=== PATIENT | male | born 1955 | race American Indian/Alaskan Native ===

== ENCOUNTER 2017-04-23 07:42 | Emergency (ER) | payer MEDICAID, SELFPAY ==
--- NOTE | 2017-04-23 07:48 | EDM.PDOC ---
ED HPI GENERAL MEDICAL PROBLEM - General Chief Complaint: General Stated Complaint: [id number] FLU Time Seen by Provider: 04/23/17 07:46 Source of Information: Reports: Patient, Old Records, RN, RN Notes Reviewed History Limitations: Reports: No Limitations - History of Present Illness INITIAL COMMENTS - FREE TEXT/NARRATIVE: Arrives from home by POV with c/o 1 weeks duration of cough, fever/chills, and generalized body aches with "flu-like" symptoms. Pt denies chest pain, abdominal pain, N/V/D/C, or sore throat. Duration: Constant Location: Reports: Generalized Quality: Reports: Ache Severity: Moderate Improves with: Reports: None Worsens with: Reports: None Context: Reports: Sick Contact Associated Symptoms: Reports: No Other Symptoms Treatments PATIENT CARE PROVIDER: Reports: Acetaminophen Headache Pain Score (Numeric/FACES): 9 - Related Data Allergies Allergy/AdvReac Type Severity Reaction Status Date / Time No Known Allergies Allergy Verified 04/23/17 07:46 Home Meds: Home Meds Gabapentin [Gabapentin] 600 mg PO TID 10/14/14 [History] Insulin Glarg,Human.Rec.Analog [Lantus] 40 units SUBCUT DAILY 10/14/14 [History] Simvastatin [Simvastatin] 10 mg PO DAILY 10/14/14 [History] Aspirin [Halfprin] 81 mg PO DAILY 10/22/14 [History] Insulin Aspart [NovoLOG] 10 units SUBCUT TID 10/22/14 [History] Lisinopril [Lisinopril] 40 mg PO DAILY 10/22/14 [History] Tamsulosin [Flomax] 0.4 mg PO DAILY 04/01/15 [History] traMADol HCl [Tramadol HCl] 100 mg PO Q6H PRN 07/22/16 [History] DULoxetine HCl [Cymbalta] 60 mg PO DAILY 04/23/17 [History] Hydrochlorothiazide 25 mg PO DAILY 04/23/17 [History] Meloxicam [Meloxicam] 15 mg PO DAILY 04/23/17 [History] Past Medical History HEENT History: Reports: None Cardiovascular History: Reports: High Cholesterol, Hypertension Respiratory History: Reports: None Gastrointestinal History: Reports: None Genitourinary History: Reports: BPH, Retention, Urinary Other Genitourinary History: going to often Musculoskeletal History: Reports: Back Pain, Chronic Other Musculoskeletal History: injections to both hips 3 weeks ago Neurological History: Reports: None Psychiatric History: Reports: None Endocrine/Metabolic History: Reports: Diabetes, Type II Hematologic History: Reports: None Immunologic History: Reports: None Oncologic (Cancer) History: Reports: None Dermatologic History: Reports: None - Infectious Disease History Infectious Disease History: Reports: Chicken Pox - Past Surgical History Head Surgeries/Procedures: Reports: None HEENT Surgical History: Reports: Tonsillectomy Other Musculoskeletal Surgeries/Procedures:: ankle surgury Social & Family History - Family History Family Medical History: Noncontributory - Tobacco Use Smoking Status *Q: Current Some Day Smoker Years of Tobacco use: 20 Packs/Tins Daily: 0.5 Used Tobacco, but Quit: No Month Tobacco Last Used: october Hand Smoke Exposure: No - Caffeine Use Caffeine Use: Reports: Coffee - Alcohol Use Days Per Week of Alcohol Use: 0 - Recreational Drug Use Recreational Drug Use: No - Living Situation & Occupation Living situation: Reports: with Family Occupation: Employed ED ROS GENERAL - Review of Systems Review Of Systems: ROS reveals no pertinent complaints other than HPI. ED EXAM, GENERAL - Physical Exam Exam: See Below Exam Limited By: No Limitations General Appearance: Alert, WD/WN, No Apparent Distress Eye Exam: Bilateral Eye: Normal Inspection Ears: Normal External Exam, Normal Canal, Hearing Grossly Normal, Normal TMs Nose: Normal Inspection, Normal Mucosa, No Blood Throat/Mouth: Normal Inspection, Normal Lips, Normal Teeth, Normal Gums, Normal Oropharynx, Normal Voice, No Airway Compromise Head: Atraumatic, Normocephalic Neck: Normal Inspection, Supple, Non-Tender, Full Range of Motion. No: Lymphadenopathy (L), Lymphadenopathy (R) Respiratory/Chest: No Respiratory Distress, No Accessory Muscle Use, Decreased Breath Sounds, Other (course breath sounds, dry cough) Cardiovascular: Normal Peripheral Pulses, Regular Rate, Rhythm, No Edema GI/Abdominal: Normal Bowel Sounds, Soft, Non-Tender, No Organomegaly, No Distention, No Abnormal Bruit (Male) Exam: Deferred Rectal (Males) Exam: Deferred Back Exam: Normal Inspection. No: CVA Tenderness (L), CVA Tenderness (R) Extremities: Normal Inspection Neurological: Alert, Oriented, CN II-XII Intact, Normal Cognition, Normal Gait, No Motor/Sensory Deficits Psychiatric: Normal Affect, Normal Mood Skin Exam: Warm, Dry, Intact, Normal Color, No Rash Course - Vital Signs Last Recorded V/S: Last Vital Signs Temp 36.9 C 04/23/17 07:54 Pulse 108 H 04/23/17 07:54 Resp 16 04/23/17 07:54 BP 160/86 H 04/23/17 07:54 Pulse Ox 96 04/23/17 07:54 - Orders/Labs/Meds Orders: Active Orders 24 hr Category Date Time Status Chest 2V [CR] Stat Exams 04/23/17 08:03 Taken CBC WITH AUTO DIFF [HEME] Stat Lab 04/23/17 08:12 Results MANUAL DIFFERENTIAL QA/NC [HEME] Stat Lab 04/23/17 08:12 Results cefTRIAXone 1 GM,Lidocaine 1% 2.1 ML Med 04/23/17 08:35 Ordered cefTRIAXone [Rocephin] 1 gm Lidocaine 1% [Xylocaine-MPF 1%] 2.1 ml IM ONETIME Labs: Laboratory Tests 04/23/17 Range/Units 08:12 WBC 9.4 (5.0-10.0) 10^3/uL RBC 4.77 (4.6-6.2) 10^6/uL Hgb 13.7 L (14.0-18.0) g/dL Hct 38.9 L (40.0-54.0) % MCV 81.6 (80-100) fL MCH 28.7 (27.0-34.0) pg MCHC 35.2 H (33.0-35.0) g/dL Plt Count 217 (150-450) 10^3/uL Neut % (Auto) 81.2 H (42.2-75.2) % Lymph % (Auto) 9.3 L (20.5-50.1) % Story % (Auto) 9.3 H (2-8) % Eos % (Auto) 0.1 L (1.0-3.0) % Baso % (Auto) 0.1 (0.0-1.0) % Add Manual Diff Yes Meds: Rocephin 1g IM. - Radiology Interpretation Free Text/Narrative:: CXR: stable Rt pulmonary granuloma compared to prior studies, possible left lingular infiltrate, see Rad. report. Departure - Departure Time of Disposition: 08:33 Disposition: Home, Self-Care 01 Condition: Good Clinical Impression: Pneumonia Qualifiers: Pneumonia type: due to unspecified organism Laterality: left Lung location: unspecified part of lung Qualified Code(s): J18.9 - Pneumonia, unspecified organism - Discharge Information Instructions: Community-Acquired Pneumonia, Adult, [id number] Forms: ED Department Discharge Additional Instructions: Rx: Zithromax 500mg Rx: Prednisone 20mg Follow up in clinic in 3 to 5 days for recheck. - My Orders Last 24 Hours: My Active Orders 04/23/17 08:03 Chest 2V [CR] Stat 04/23/17 08:12 CBC WITH AUTO DIFF [HEME] Stat MANUAL DIFFERENTIAL QA/NC [HEME] Stat 04/23/17 08:35 cefTRIAXone 1 GM,Lidocaine 1% 2.1 ML cefTRIAXone [Rocephin] 1 gm Lidocaine 1% [ Xylocaine-MPF 1%] 2.1 ml IM ONETIME - Assessment/Plan Last 24 Hours: My Active Orders 04/23/17 08:03 Chest 2V [CR] Stat 04/23/17 08:12 CBC WITH AUTO DIFF [HEME] Stat MANUAL DIFFERENTIAL QA/NC [HEME] Stat 04/23/17 08:35 cefTRIAXone 1 GM,Lidocaine 1% 2.1 ML cefTRIAXone [Rocephin] 1 gm Lidocaine 1% [ Xylocaine-MPF 1%] 2.1 ml IM ONETIME
[2017-04-23 07:55] VITALS: BP 160/86
[2017-04-23] MEDS ORDERED: cefTRIAXone 1 GM, Lidocaine 1% 2.1 ML IM ONE ×2 (08:35)
== END 2017-04-23 09:10 | disposition home or self-care (01) ==
LOC: DL.ED 07:42
DX: J18.9 Pneumonia, unspecified organism (principal); E78.4 Other hyperlipidemia; I10 Essential (primary) hypertension; E11.9 Type 2 diabetes mellitus without complications; F17.210 Nicotine dependence, cigarettes, uncomplicated; Z79.899 Other long term (current) drug therapy; Z79.82 Long term (current) use of aspirin; Z79.4 Long term (current) use of insulin
CPT/HCPCS: 36415; 71020; 85025; 96372; 99283; J0696

== ENCOUNTER 2017-05-19 09:35 | Emergency (ER) | payer MEDICAID | END 2017-05-19 10:00 | LOC: DL.ED 09:35 | DX: Z53.21 Procedure and treatment not carried out due to patient leaving prior to being seen by health care provider (principal) ==

== ENCOUNTER 2017-08-09 11:27 | Emergency (ER) | payer MEDICAID ==
[2017-08-09 12:03] VITALS: BP 180/87
--- NOTE | 2017-08-09 12:42 | EDM.PDOC ---
ED HPI GENERAL MEDICAL PROBLEM - General Chief Complaint: Lower Extremity Injury/Pain Stated Complaint: [id number] FELL AT HOME Time Seen by Provider: 08/09/17 12:20 Source of Information: Reports: Patient History Limitations: Reports: No Limitations - History of Present Illness INITIAL COMMENTS - FREE TEXT/NARRATIVE: This 62 yo male patient reports to the ED with right hip and pelvic pain. The patient reports he broke a pipe in his house last night. As he was attempting to get the water out of his basement, the patient fell in the water and hit his hip. The patient reports he has had increased pain in his hip since the fall. The patient reports he could not get a ride into the ED last night. The patient reports he does have chronic bilateral hip pain and is scheduled to be seen by ortho next week. The patient reports he was seen by Navjot Vasquez last week, but she did not refill his Tramadol or Gabapentin. Onset Date: 08/08/17 Duration: Constant Location: Reports: Lower Extremity, Right Quality: Reports: Ache, Dull Severity: Moderate Improves with: Reports: Rest Worsens with: Reports: Movement Context: Reports: Other (fall) Associated Symptoms: Reports: No Other Symptoms Left Hip Pain Score (Numeric/FACES): 10 - Related Data Allergies Allergy/AdvReac Type Severity Reaction Status Date / Time No Known Allergies Allergy Verified 04/23/17 07:46 Home Meds: Home Meds Gabapentin [Gabapentin] 600 mg PO TID 10/14/14 [History] Insulin Glarg,Human.Rec.Analog [Lantus] 40 units SUBCUT DAILY 10/14/14 [History] Simvastatin [Simvastatin] 10 mg PO DAILY 10/14/14 [History] Aspirin [Halfprin] 81 mg PO DAILY 10/22/14 [History] Insulin Aspart [NovoLOG] 10 units SUBCUT TID 10/22/14 [History] Lisinopril [Lisinopril] 40 mg PO DAILY 10/22/14 [History] Tamsulosin [Flomax] 0.4 mg PO DAILY 04/01/15 [History] traMADol HCl [Tramadol HCl] 100 mg PO Q6H PRN 07/22/16 [History] DULoxetine HCl [Cymbalta] 60 mg PO DAILY 04/23/17 [History] Hydrochlorothiazide 25 mg PO DAILY 04/23/17 [History] Meloxicam [Meloxicam] 15 mg PO DAILY 04/23/17 [History] Past Medical History HEENT History: Reports: None Cardiovascular History: Reports: High Cholesterol, Hypertension Respiratory History: Reports: None Gastrointestinal History: Reports: None Genitourinary History: Reports: BPH, Retention, Urinary Other Genitourinary History: going to often Musculoskeletal History: Reports: Back Pain, Chronic, Osteoarthritis Other Musculoskeletal History: injections to both hips 3 weeks ago Neurological History: Reports: None Psychiatric History: Reports: None Endocrine/Metabolic History: Reports: Diabetes, Type II Hematologic History: Reports: None Immunologic History: Reports: None Oncologic (Cancer) History: Reports: None Dermatologic History: Reports: None - Infectious Disease History Infectious Disease History: Reports: Chicken Pox - Past Surgical History Head Surgeries/Procedures: Reports: None HEENT Surgical History: Reports: Tonsillectomy Other Musculoskeletal Surgeries/Procedures:: ankle surgury Social & Family History - Family History Family Medical History: Noncontributory - Tobacco Use Smoking Status *Q: Current Some Day Smoker Years of Tobacco use: 20 Packs/Tins Daily: 0.5 Used Tobacco, but Quit: No Month Tobacco Last Used: october Second Hand Smoke Exposure: No - Caffeine Use Caffeine Use: Reports: Coffee - Alcohol Use Days Per Week of Alcohol Use: 0 - Recreational Drug Use Recreational Drug Use: No - Living Situation & Occupation Living situation: Reports: with Family Occupation: Employed Review of Systems - Review of Systems Review Of Systems: ROS reveals no pertinent complaints other than HPI. ED EXAM, GENERAL - Physical Exam Exam: See Below Exam Limited By: No Limitations General Appearance: Alert, WD/WN, Moderate Distress Eye Exam: Bilateral Eye: EOMI, Normal Inspection, PERRL Ears: Normal External Exam, Normal Canal, Hearing Grossly Normal, Normal TMs Nose: Normal Inspection, Normal Mucosa, No Blood Throat/Mouth: Normal Inspection, Normal Lips, Normal Teeth, Normal Gums, Normal Oropharynx, Normal Voice, No Airway Compromise Head: Atraumatic, Normocephalic Neck: Normal Inspection, Supple, Non-Tender, Full Range of Motion Respiratory/Chest: No Respiratory Distress, Lungs Clear, Normal Breath Sounds, No Accessory Muscle Use, Chest Non-Tender Cardiovascular: Normal Peripheral Pulses, Regular Rate, Rhythm, No Edema, No Gallop, No JVD, No Murmur, No Rub GI/Abdominal: Normal Bowel Sounds, Soft, Non-Tender, No Organomegaly, No Distention, No Abnormal Bruit, No Mass (Male) Exam: Deferred Rectal (Males) Exam: Deferred Back Exam: Normal Inspection, Full Range of Motion, NT Extremities: Normal Inspection, No Pedal Edema, Normal Capillary Refill, Leg Pain (right hip and pelvic pain) Neurological: Alert, Oriented, CN II-XII Intact, Normal Cognition, Normal Reflexes Psychiatric: Normal Affect, Normal Mood Skin Exam: Warm, Dry, Intact, Normal Color, No Rash Lymphatic: No Adenopathy Course - Vital Signs Last Recorded V/S: Last Vital Signs Temp 36.6 C 08/09/17 11:43 Pulse 75 08/09/17 11:43 Resp 16 08/09/17 11:43 BP 180/87 H 08/09/17 11:43 Pulse Ox 100 08/09/17 11:43 Departure - Departure Time of Disposition: 13:22 Disposition: Home, Self-Care 01 Condition: Fair Clinical Impression: Right hip pain - Discharge Information Instructions: Hip Pain Forms: ED Department Discharge Care Plan Goals: The patient was advised of the examination and x-ray results during the visit. The patient was given a script for [place] (5/325) #20 to take 1 by mouth every 6 hours as needed for pain. The patient was advised that only limited supplies of pain medications may be given through the ED. 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 If the patient has any additional symptoms or concerns, the patient should follow-up with his primary care facility or return to the emergency department.
== END 2017-08-09 13:25 | disposition home or self-care (01) ==
LOC: DL.ED 11:27
DX: M25.551 Pain in right hip (principal); E78.00 Pure hypercholesterolemia, unspecified; I10 Essential (primary) hypertension; E11.9 Type 2 diabetes mellitus without complications; F17.210 Nicotine dependence, cigarettes, uncomplicated; Z79.4 Long term (current) use of insulin; Z79.82 Long term (current) use of aspirin; Z79.899 Other long term (current) drug therapy
CPT/HCPCS: 99283

== ENCOUNTER 2017-09-22 14:56 | Emergency (ER) | payer SELFPAY ==
[2017-09-22] MEDS ORDERED: Ketorolac 30 MG/ML SDV IM ONE (17:00)
[2017-09-22 17:05] VITALS: BP 163/83
--- NOTE | 2017-09-22 17:12 | EDM.PDOC ---
Scribed by Judy Maldonado 09/22/17 1712 for Alex Lee MD ED HPI GENERAL MEDICAL PROBLEM - General Chief Complaint: General Stated Complaint: HIGH BP [id number] Time Seen by Provider: 09/22/17 16:55 Source of Information: Reports: Patient, RN, RN Notes Reviewed History Limitations: Reports: No Limitations - History of Present Illness INITIAL COMMENTS - FREE TEXT/NARRATIVE: Patient complaining of joint pains in bilateral knees, hands, wrists, elbows, shoulders and back. History of osteoarthritis and spurs on spine. Denies injury. Joints ache and feel hot to him. Location: Reports: Back, Upper Extremity, Left, Upper Extremity, Right, Lower Extremity, Left, Lower Extremity, Right, Other (shoulders) Quality: Reports: Ache Severity: Severe Improves with: Reports: None Worsens with: Reports: None Associated Symptoms: Reports: No Other Symptoms Generalized Pain Score (Numeric/FACES): 9 - Related Data Allergies Allergy/AdvReac Type Severity Reaction Status Date / Time No Known Allergies Allergy Verified 04/23/17 07:46 Home Meds: Home Meds Gabapentin [Gabapentin] 600 mg PO TID 10/14/14 [History] Insulin Glarg,Human.Rec.Analog [Lantus] 40 units SUBCUT DAILY 10/14/14 [History] Simvastatin [Simvastatin] 10 mg PO DAILY 10/14/14 [History] Aspirin [Halfprin] 81 mg PO DAILY 10/22/14 [History] Insulin Aspart [NovoLOG] 10 units SUBCUT TID 10/22/14 [History] Lisinopril [Lisinopril] 40 mg PO DAILY 10/22/14 [History] Tamsulosin [Flomax] 0.4 mg PO DAILY 04/01/15 [History] DULoxetine HCl [Cymbalta] 60 mg PO DAILY 04/23/17 [History] Hydrochlorothiazide 25 mg PO DAILY 04/23/17 [History] Meloxicam [Meloxicam] 15 mg PO DAILY 04/23/17 [History] Past Medical History HEENT History: Reports: None Cardiovascular History: Reports: High Cholesterol, Hypertension Respiratory History: Reports: None Gastrointestinal History: Reports: None Genitourinary History: Reports: BPH, Retention, Urinary Other Genitourinary History: going to often Musculoskeletal History: Reports: Back Pain, Chronic, Osteoarthritis Other Musculoskeletal History: injections to both hips 3 weeks ago Neurological History: Reports: None Psychiatric History: Reports: None Endocrine/Metabolic History: Reports: Diabetes, Type II Hematologic History: Reports: None Immunologic History: Reports: None Oncologic (Cancer) History: Reports: None Dermatologic History: Reports: None - Infectious Disease History Infectious Disease History: Reports: Chicken Pox - Past Surgical History Head Surgeries/Procedures: Reports: None HEENT Surgical History: Reports: Tonsillectomy Other Musculoskeletal Surgeries/Procedures:: ankle surgury Social & Family History - Family History Family Medical History: Noncontributory - Tobacco Use Smoking Status *Q: Current Every Day Smoker Years of Tobacco use: 5 Packs/Tins Daily: 0.1 Used Tobacco, but Quit: No Month Tobacco Last Used: october Second Hand Smoke Exposure: No - Caffeine Use Caffeine Use: Reports: Coffee, Soda, Tea - Alcohol Use Days Per Week of Alcohol Use: 0 - Recreational Drug Use Recreational Drug Use: No - Living Situation & Occupation Living situation: Reports: with Family Occupation: Employed ED ROS GENERAL - Review of Systems Review Of Systems: ROS reveals no pertinent complaints other than HPI. ED EXAM, GENERAL - Physical Exam Exam: See Below Exam Limited By: No Limitations General Appearance: Alert, WD/WN, No Apparent Distress Neck: Normal Inspection, Supple, Non-Tender, Full Range of Motion Respiratory/Chest: No Respiratory Distress, Lungs Clear, Normal Breath Sounds, No Accessory Muscle Use, Chest Non-Tender Cardiovascular: Normal Peripheral Pulses, Regular Rate, Rhythm, No Edema, No Gallop, No JVD, No Murmur, No Rub Extremities: Other (generalized joints, spinal and paraspinal tenderness. Novisible joint swelling, increased warmth or erythema.) Neurological: Alert, Oriented, CN II-XII Intact, Normal Cognition, Normal Gait, Normal Reflexes, No Motor/Sensory Deficits Psychiatric: Normal Affect, Normal Mood Skin Exam: Warm, Dry, Intact, Normal Color, No Rash Lymphatic: No Adenopathy Course - Vital Signs Last Recorded V/S: Last Vital Signs Temp 36.6 C 09/22/17 17:04 Pulse 82 09/22/17 17:04 Resp 18 09/22/17 17:04 BP 163/83 H 09/22/17 17:04 Pulse Ox 98 09/22/17 17:04 - Orders/Labs/Meds Meds: Medications Discontinued Medications Generic Name Dose Route Start Last Admin Trade Name Smiley PRN Reason Stop Dose Admin Ketorolac Tromethamine 30 mg 09/22/17 17:00 Toradol IM 09/22/17 17:01 ONETIME ONE Departure - Departure Time of Disposition: 17:02 Disposition: Home, Self-Care 01 Condition: Good Clinical Impression: Osteoarthritis Qualifiers: Osteoarthritis location: multiple joints Osteoarthritis type: primary Qualified Code(s): M15.0 - Primary generalized (osteo)arthritis - Discharge Information Instructions: Arthritis, [id number] Forms: ED Department Discharge Additional Instructions: RX: Hydrocodone APAP 10mg/325mg. Follow up in clinic on Sunday for recheck and pain management. I have read and agree with the documentation that has been completed regarding this visit. By signing this record, I attest that the documentation was completed in my physical presence and is an accurate record of the encounter.
[2017-09-22] MEDS ORDERED: Acetaminophen/HYDROcodone 325-10 MG Tab ONE (17:37)
== END 2017-09-22 17:45 | disposition home or self-care (01) ==
LOC: DL.ED 14:56
DX: M15.0 Primary generalized (osteo)arthritis (principal); I10 Essential (primary) hypertension; E11.9 Type 2 diabetes mellitus without complications; F17.210 Nicotine dependence, cigarettes, uncomplicated; Z79.4 Long term (current) use of insulin; Z79.82 Long term (current) use of aspirin; Z79.899 Other long term (current) drug therapy
CPT/HCPCS: 96372; 99283; A9270; J1885

== ENCOUNTER 2017-11-17 11:31 | Emergency (ER) | payer MEDICAID, MEDICARE, OTHER ==
[2017-11-17 11:36] VITALS: BP 148/91
[2017-11-17] MEDS ORDERED: Sodium Chloride 0.9% 10 ML Syringe FLUSH PRN (11:55)
[2017-11-17] MEDS ORDERED: Ketorolac 30 MG/ML SDV IM ONE (12:13)
--- NOTE | 2017-11-17 12:17 | EDM.PDOC ---
ED HPI GENERAL MEDICAL PROBLEM - General Chief Complaint: General Stated Complaint: A LOT OF PAIN, ARTHRITUS Time Seen by Provider: 11/17/17 12:05 Source of Information: Reports: Patient, RN, RN Notes Reviewed History Limitations: Reports: No Limitations - History of Present Illness INITIAL COMMENTS - FREE TEXT/NARRATIVE: Patient presents to ER with complaint of arthritis pain. He sees Navjot Vasquez in January and Shanon Werner at [facility] on November 23. He has chronic pain and is on Tramadol. He has arthritis in shoulder, pain in his back, and in legs with walking. Pain is 9/10. Duration: Getting Worse Location: Reports: Generalized Quality: Reports: Ache Severity: Moderate Improves with: Reports: None Worsens with: Reports: None Associated Symptoms: Reports: No Other Symptoms Generalized Pain Score (Numeric/FACES): 9 - Related Data Allergies Allergy/AdvReac Type Severity Reaction Status Date / Time No Known Allergies Allergy Verified 11/17/17 11:36 Home Meds: Home Meds Gabapentin [Gabapentin] 600 mg PO TID 10/14/14 [History] Insulin Glarg,Human.Rec.Analog [Lantus] 40 units SUBCUT DAILY 10/14/14 [History] Simvastatin [Simvastatin] 10 mg PO DAILY 10/14/14 [History] Aspirin [Halfprin] 81 mg PO DAILY 10/22/14 [History] Insulin Aspart [NovoLOG] 10 units SUBCUT TID 10/22/14 [History] Lisinopril [Lisinopril] 40 mg PO DAILY 10/22/14 [History] Tamsulosin [Flomax] 0.4 mg PO DAILY 04/01/15 [History] DULoxetine HCl [Cymbalta] 60 mg PO DAILY 04/23/17 [History] Hydrochlorothiazide 25 mg PO DAILY 04/23/17 [History] Meloxicam [Meloxicam] 15 mg PO DAILY 04/23/17 [History] Past Medical History HEENT History: Reports: None Cardiovascular History: Reports: High Cholesterol, Hypertension Respiratory History: Reports: None Gastrointestinal History: Reports: None Genitourinary History: Reports: BPH, Retention, Urinary Other Genitourinary History: going to often Musculoskeletal History: Reports: Back Pain, Chronic, Osteoarthritis Other Musculoskeletal History: injections to both hips 3 weeks ago Neurological History: Reports: None Psychiatric History: Reports: None Endocrine/Metabolic History: Reports: Diabetes, Type II Hematologic History: Reports: None Immunologic History: Reports: None Oncologic (Cancer) History: Reports: None Dermatologic History: Reports: None - Infectious Disease History Infectious Disease History: Reports: Chicken Pox - Past Surgical History Head Surgeries/Procedures: Reports: None HEENT Surgical History: Reports: Tonsillectomy Other Musculoskeletal Surgeries/Procedures:: ankle surgury Social & Family History - Family History Family Medical History: Noncontributory - Tobacco Use Smoking Status *Q: Current Every Day Smoker Years of Tobacco use: 15 Packs/Tins Daily: 0.2 Used Tobacco, but Quit: No Month Tobacco Last Used: october Second Hand Smoke Exposure: Yes - Caffeine Use Caffeine Use: Reports: Coffee, Soda, Tea - Alcohol Use Days Per Week of Alcohol Use: 0 - Recreational Drug Use Recreational Drug Use: No - Living Situation & Occupation Living situation: Reports: with Family Occupation: Employed ED ROS GENERAL - Review of Systems Review Of Systems: ROS reveals no pertinent complaints other than HPI. ED EXAM, GENERAL - Physical Exam Exam: See Below Exam Limited By: No Limitations General Appearance: Alert, WD/WN, No Apparent Distress Eye Exam: Bilateral Eye: Normal Inspection Ears: Normal External Exam, Normal Canal, Hearing Grossly Normal, Normal TMs Nose: Normal Inspection, Normal Mucosa, No Blood Throat/Mouth: Normal Inspection, Normal Lips, Normal Teeth, Normal Gums, Normal Oropharynx, Normal Voice, No Airway Compromise Head: Atraumatic, Normocephalic Neck: Normal Inspection, Supple, Non-Tender, Full Range of Motion Respiratory/Chest: No Respiratory Distress, Lungs Clear, Normal Breath Sounds, No Accessory Muscle Use, Chest Non-Tender Cardiovascular: Normal Peripheral Pulses, Regular Rate, Rhythm, No Edema, No Gallop, No JVD, No Murmur, No Rub GI/Abdominal: Normal Bowel Sounds, Soft, Non-Tender, No Organomegaly, No Distention, No Abnormal Bruit, No Mass (Male) Exam: Deferred Rectal (Males) Exam: Deferred Back Exam: Other (Decreased range of motion and weakness.) Extremities: Other (Decreased range of motion and weakness.) Neurological: Alert, Oriented, CN II-XII Intact, Normal Cognition, Normal Gait, Normal Reflexes, No Motor/Sensory Deficits Psychiatric: Normal Affect, Normal Mood Skin Exam: Warm, Dry, Intact, Normal Color, No Rash Lymphatic: No Adenopathy Course - Vital Signs Last Recorded V/S: Last Vital Signs Temp 95 F L 11/17/17 11:33 Pulse 98 11/17/17 11:33 Resp 18 11/17/17 11:33 BP 148/91 H 11/17/17 11:33 Pulse Ox 100 11/17/17 11:33 - Orders/Labs/Meds Meds: Medications Discontinued Medications Generic Name Dose Route Start Last Admin Trade Name Smiley PRN Reason Stop Dose Admin Ketorolac Tromethamine 60 mg 11/17/17 12:13 11/17/17 12:26 Toradol IM 11/17/17 12:14 60 mg ONETIME ONE Administration Departure - Departure Time of Disposition: 12:15 Disposition: Home, Self-Care 01 Condition: Fair Clinical Impression: Arthritis Chronic pain Qualifiers: Chronic pain type: other chronic pain Qualified Code(s): G89.29 - Other chronic pain - Discharge Information Instructions: Arthritis, Chronic Pain Referrals: Michael Vasquez NP [Primary Care Provider] - Forms: ED Department Discharge Additional Instructions: Follow up with your primary care facility Begin management with for chronic pain
== END 2017-11-17 12:26 | disposition home or self-care (01) ==
LOC: DL.ED 11:31
DX: G89.29 Other chronic pain (principal); M19.90 Unspecified osteoarthritis, unspecified site; I10 Essential (primary) hypertension; E78.00 Pure hypercholesterolemia, unspecified; E11.9 Type 2 diabetes mellitus without complications; Z79.4 Long term (current) use of insulin; Z79.82 Long term (current) use of aspirin; Z98.890 Other specified postprocedural states
CPT/HCPCS: 96372; 99283; J1885

== ENCOUNTER 2017-12-31 01:15 | Emergency (ER) | payer MEDICARE, OTHER ==
[2017-12-31 01:26] VITALS: BP 124/68
--- NOTE | 2017-12-31 01:37 | EDM.PDOC ---
ED HPI GENERAL MEDICAL PROBLEM - General Chief Complaint: General Stated Complaint: AMBULANCE Time Seen by Provider: 12/31/17 01:30 Source of Information: Reports: Patient, EMS, RN Notes Reviewed History Limitations: Reports: No Limitations - History of Present Illness INITIAL COMMENTS - FREE TEXT/NARRATIVE: ED via [facility] with c/o feeling dizzy. States it is from hi pain. Has generalized arthritis pain, primarily hips and back. Diabetic, normal blood sugars 200. Accidently took 2 lisinopril today. - Related Data Allergies Allergy/AdvReac Type Severity Reaction Status Date / Time No Known Allergies Allergy Verified 12/31/17 01:20 Home Meds: Home Meds Gabapentin [Gabapentin] 600 mg PO TID 10/14/14 [History] Insulin Glarg,Human.Rec.Analog [Lantus] 40 units SUBCUT DAILY 10/14/14 [History] Simvastatin [Simvastatin] 10 mg PO DAILY 10/14/14 [History] Aspirin [Halfprin] 81 mg PO DAILY 10/22/14 [History] Insulin Aspart [NovoLOG] 10 units SUBCUT TID 10/22/14 [History] Lisinopril [Lisinopril] 40 mg PO DAILY 10/22/14 [History] Hydrochlorothiazide 25 mg PO DAILY 04/23/17 [History] Past Medical History HEENT History: Reports: None Cardiovascular History: Reports: High Cholesterol, Hypertension Respiratory History: Reports: None Gastrointestinal History: Reports: None Genitourinary History: Reports: BPH, Retention, Urinary Other Genitourinary History: going to often Musculoskeletal History: Reports: Back Pain, Chronic, Osteoarthritis Other Musculoskeletal History: injections to both hips 3 weeks ago Neurological History: Reports: None Psychiatric History: Reports: None Endocrine/Metabolic History: Reports: Diabetes, Type II Hematologic History: Reports: None Immunologic History: Reports: None Oncologic (Cancer) History: Reports: None Dermatologic History: Reports: None - Infectious Disease History Infectious Disease History: Reports: Chicken Pox - Past Surgical History Head Surgeries/Procedures: Reports: None HEENT Surgical History: Reports: Tonsillectomy Other Musculoskeletal Surgeries/Procedures:: ankle surgury Social & Family History - Family History Family Medical History: Noncontributory - Tobacco Use Smoking Status *Q: Current Every Day Smoker Years of Tobacco use: 15 Packs/Tins Daily: 0.2 Used Tobacco, but Quit: No Month Tobacco Last Used: october Second Hand Smoke Exposure: Yes - Caffeine Use Caffeine Use: Reports: Coffee, Soda, Tea - Alcohol Use Days Per Week of Alcohol Use: 0 - Recreational Drug Use Recreational Drug Use: No - Living Situation & Occupation Living situation: Reports: with Family Occupation: Employed ED ROS GENERAL - Review of Systems Review Of Systems: See Below Constitutional: Reports: Weakness (generalized ) HEENT: Reports: No Symptoms Respiratory: Reports: No Symptoms Cardiovascular: Reports: Lightheadedness Endocrine: Reports: High Glucose (states blood sugars usually 200) GI/Abdominal: Reports: No Symptoms Musculoskeletal: Reports: Joint Pain (generalized, hip and back worse) Skin: Reports: No Symptoms Neurological: Reports: No Symptoms ED EXAM, GENERAL - Physical Exam Exam: See Below Exam Limited By: Language Barrier General Appearance: Alert, Mild Distress (with movment) Eye Exam: Bilateral Eye: EOMI, PERRL Ears: Normal External Exam, Normal TMs Nose: Normal Inspection Throat/Mouth: Normal Inspection, No Airway Compromise Head: Atraumatic, Normocephalic Neck: Normal Inspection Respiratory/Chest: No Respiratory Distress, Lungs Clear, Normal Breath Sounds Cardiovascular: Normal Peripheral Pulses, Regular Rate, Rhythm GI/Abdominal: Normal Bowel Sounds, Soft, Non-Tender Back Exam: Other (generalized discomfort with movment and palpation) Extremities: No Pedal Edema, Other (chronic bilateral hip pain with movment) Neurological: Alert, Oriented, Normal Cognition Psychiatric: Normal Affect, Other (pleasant polite talkative) Skin Exam: Warm, Dry, Intact, Normal Color Course - Vital Signs Last Recorded V/S: Last Vital Signs Temp 97.9 F 12/31/17 01:25 Pulse 83 12/31/17 01:25 Resp 19 12/31/17 01:25 BP 124/68 12/31/17 01:25 Pulse Ox 100 12/31/17 01:25 Orthostatic Blood Pressure [ 110/73 Standing] Orthostatic Blood Pressure [ 119/67 Sitting] Orthostatic Blood Pressure [ 128/75 Supine] - Orders/Labs/Meds Orders: Active Orders 24 hr Category Date Time Status EKG 12 Lead [EKG Documentation Completion] [RC] URGENT Care 12/31/17 01:27 Active Orthostatic Vital Signs [RC] ASDIRECTED Care 12/31/17 01:36 Active Labs: Laboratory Tests 12/31/17 12/31/17 12/31/17 Range/Units 01:21 01:33 01:33 WBC 12.6 H (5.0-10.0) 10^3/uL RBC 5.22 (4.6-6.2) 10^6/uL Hgb 15.3 D (14.0-18.0) g/dL Hct 42.8 (40.0-54.0) % MCV 82.0 (80-100) fL MCH 29.3 (27.0-34.0) pg MCHC 35.7 H (33.0-35.0) g/dL Plt Count 232 (150-450) 10^3/uL Neut % (Auto) 81.5 H (42.2-75.2) % Lymph % (Auto) 11.5 L (20.5-50.1) % [place] % (Auto) 5.6 (2-8) % Eos % (Auto) 1.0 (1.0-3.0) % Baso % (Auto) 0.4 (0.0-1.0) % Sodium 131 L (135-145) mmol/L Potassium 3.7 (3.6-5.0) mmol/L Chloride 94 L (101-111) mmol/L Carbon Dioxide 27.0 (21.0-31.0) mmol/L Anion Gap 13.7 BUN 15 (7-18) mg/dL Creatinine 0.7 (0.6-1.3) mg/dL Est Cr Clr Drug Dosing 95.18 mL/min Estimated GFR (MDRD) > 60 BUN/Creatinine Ratio 21.42 Glucose 270 H (74-105) mg/dL POC Glucose 263 H (70-105) mg/dl Calcium 8.6 (8.4-10.2) mg/dl Total Bilirubin 1.6 H (0.2-1.0) mg/dL AST 384 H (10-42) IU/L ALT 874 H (10-60) IU/L Alkaline Phosphatase 126 H (42-121) IU/L Total Protein 7.8 (6.7-8.2) g/dl Albumin 4.1 (3.2-5.5) g/dl Globulin 3.7 Albumin/Globulin Ratio 1.11 Urine Color (YELLOW) Urine Appearance (CLEAR) Urine pH (5.0-9.0) Ur Specific [place] (1.005-1.030) Urine Protein (NEGATIVE) Urine Glucose (UA) (NEGATIVE) Urine Ketones (NEGATIVE) Urine Occult Blood (NEGATIVE) Urine Nitrite (NEGATIVE) Urine Bilirubin (NEGATIVE) Urine Urobilinogen (0.2-1.0) mg/dL Ur Leukocyte Esterase (NEGATIVE) Urine RBC /HPF Urine WBC (0-5/HPF) /HPF Ur Epithelial Cells /HPF Urine Bacteria (0-FEW/HPF) /HPF Urine Opiates Screen (NEGATIVE) Ur Oxycodone Screen (NEGATIVE) Urine Methadone Screen (NEGATIVE) Ur Barbiturates Screen (NEGATIVE) U Tricyclic Antidepress (NEGATIVE) Ur Phencyclidine Scrn (NEGATIVE) Ur Amphetamine Screen (NEGATIVE) U Methamphetamines Scrn (NEGATIVE) Urine MDMA Screen (NEGATIVE) U Benzodiazepines Scrn (NEGATIVE) Urine Cocaine Screen (NEGATIVE) U Marijuana (THC) Screen (NEGATIVE) Ethyl Alcohol < 5 mg/dL 12/31/17 12/31/17 Range/Units 01:40 01:40 WBC (5.0-10.0) 10^3/uL RBC (4.6-6.2) 10^6/uL Hgb (14.0-18.0) g/dL Hct (40.0-54.0) % MCV (80-100) fL MCH (27.0-34.0) pg MCHC (33.0-35.0) g/dL Plt Count (150-450) 10^3/uL Neut % (Auto) (42.2-75.2) % Lymph % (Auto) (20.5-50.1) % [place] % (Auto) (2-8) % Eos % (Auto) (1.0-3.0) % Baso % (Auto) (0.0-1.0) % Sodium (135-145) mmol/L Potassium (3.6-5.0) mmol/L Chloride (101-111) mmol/L Carbon Dioxide (21.0-31.0) mmol/L Anion Gap BUN (7-18) mg/dL Creatinine (0.6-1.3) mg/dL Est Cr Clr Drug Dosing mL/min Estimated GFR (MDRD) BUN/Creatinine Ratio Glucose (74-105) mg/dL POC Glucose (70-105) mg/dl Calcium (8.4-10.2) mg/dl Total Bilirubin (0.2-1.0) mg/dL AST (10-42) IU/L ALT (10-60) IU/L Alkaline Phosphatase (42-121) IU/L Total Protein (6.7-8.2) g/dl Albumin (3.2-5.5) g/dl Globulin Albumin/Globulin Ratio Urine Color Yellow (YELLOW) Urine Appearance Clear (CLEAR) Urine pH 5.5 (5.0-9.0) Ur Specific [place] 1.020 (1.005-1.030) Urine Protein Negative (NEGATIVE) Urine Glucose (UA) 500 H (NEGATIVE) Urine Ketones 40 H (NEGATIVE) Urine Occult Blood Negative (NEGATIVE) Urine Nitrite Negative (NEGATIVE) Urine Bilirubin Negative (NEGATIVE) Urine Urobilinogen 1.0 (0.2-1.0) mg/dL Ur Leukocyte Esterase Negative (NEGATIVE) Urine RBC 0-5 /HPF Urine WBC 0-5 (0-5/HPF) /HPF Ur Epithelial Cells Few /HPF Urine Bacteria Few (0-FEW/HPF) /HPF Urine Opiates Screen Negative (NEGATIVE) Ur Oxycodone Screen Negative (NEGATIVE) Urine Methadone Screen Negative (NEGATIVE) Ur Barbiturates Screen Negative (NEGATIVE) U Tricyclic Antidepress Negative (NEGATIVE) Ur Phencyclidine Scrn Negative (NEGATIVE) Ur Amphetamine Screen Negative (NEGATIVE) U Methamphetamines Scrn Negative (NEGATIVE) Urine MDMA Screen Negative (NEGATIVE) U Benzodiazepines Scrn Negative (NEGATIVE) Urine Cocaine Screen Negative (NEGATIVE) U Marijuana (THC) Screen Negative (NEGATIVE) Ethyl Alcohol mg/dL Meds: Medications Discontinued Medications Generic Name Dose Route Start Last Admin Trade Name Smiley PRN Reason Stop Dose Admin Ketorolac Tromethamine 30 mg 12/31/17 02:33 12/31/17 02:41 Toradol IM 12/31/17 02:34 30 mg ONETIME ONE Administration - Re-Assessments/Exams Free Text/Narrative Re-Assessment/Exam: 12/31/17 02:42 Discussed labs with patient, focusing on elevated LFT's. patient states [facility] has only checked blood sugars. He stated he was seen in approximately 8 months ago and was told not to take tylenol Most recent Rx from [facility] have been for tylenol 4 times daily. Denies ETOH use. Noting sobriety for past 8 years. no previous diagnosis of hepatitis. Departure - Departure Time of Disposition: 03:12 Disposition: Home, Self-Care 01 Condition: Fair Clinical Impression: Diabetes mellitus type 2, insulin dependent Chronic back pain Qualifiers: Back pain location: low back pain Back pain laterality: unspecified Sciatica presence: without sciatica Qualified Code(s): M54.5 - Low back pain; G89.29 - Other chronic pain; G89.29 - Other chronic pain - Discharge Information Instructions: Chronic Pain, Adult, Hyperglycemia, [id number] Forms: ED Department Discharge Additional Instructions: limit tylenol usage follow up in clinic for ongoing medication management monitor blood sugars limit soda ingestion , beter option would be water - My Orders Last 24 Hours: My Active Orders 12/31/17 01:27 EKG 12 Lead [EKG Documentation Completion] [RC] URGENT 12/31/17 01:36 Orthostatic Vital Signs [RC] ASDIRECTED - Assessment/Plan Last 24 Hours: My Active Orders 12/31/17 01:27 EKG 12 Lead [EKG Documentation Completion] [RC] URGENT 12/31/17 01:36 Orthostatic Vital Signs [RC] ASDIRECTED
[2017-12-31 02:01] LABS: ANION GAP 13.7; CHLORIDE,CL 94 mmol/L (101-111); SODIUM,NA 131 mmol/L (135-145)
[2017-12-31] MEDS ORDERED: Ketorolac 30 MG/ML SDV IM ONE (02:33)
--- NOTE | 2018-01-02 10:33 | EKG ---
12/31/2017- CATHLEEN CASTAÑEDA - EKG per my reading shows sinus rhythm at a rate of 86. [facility] /[id number]
== END 2017-12-31 03:22 | disposition home or self-care (01) ==
LOC: DL.ED 01:15
DX: E11.9 Type 2 diabetes mellitus without complications (principal); M54.5 Low back pain; G89.29 Other chronic pain; E78.00 Pure hypercholesterolemia, unspecified; I10 Essential (primary) hypertension; F17.210 Nicotine dependence, cigarettes, uncomplicated; Z79.899 Other long term (current) drug therapy; Z79.4 Long term (current) use of insulin; Z79.82 Long term (current) use of aspirin
CPT/HCPCS: 36415; 80053; 80305; 81001; 82962; 85025; 93005; 96372; 99284; G0480; J1885; 93010; 99283

== ENCOUNTER 2018-02-01 17:32 | Emergency (ER) | payer SELFPAY ==
[2018-02-01 18:27] LABS: CHLORIDE,CL 102 mmol/L (101-111); SODIUM,NA 132 mmol/L (135-145)
--- NOTE | 2018-02-01 19:21 | EDM.PDOC ---
ED HPI GENERAL MEDICAL PROBLEM - General Chief Complaint: Chest Pain Stated Complaint: CHEST PAIN [id number] Time Seen by Provider: 02/01/18 18:45 Source of Information: Reports: Patient History Limitations: Reports: No Limitations - History of Present Illness INITIAL COMMENTS - FREE TEXT/NARRATIVE: ED with c/o midsternal chest pain onset last ella after eating, constant discomfort since last ella better when upright worse when sitting or lying. No recent cold or cough symptoms. Describes as feeling like he needs to burp. Mid-Sternal Chest Pain Score (Numeric/FACES): 8 - Related Data Allergies Allergy/AdvReac Type Severity Reaction Status Date / Time No Known Allergies Allergy Verified 02/01/18 17:47 Home Meds: Home Meds Gabapentin 600 mg PO TID 10/14/14 [History] Insulin Glarg,Human.Rec.Analog [Lantus] 40 units SUBCUT DAILY 10/14/14 [History] Simvastatin 10 mg PO DAILY 10/14/14 [History] Aspirin [Halfprin] 81 mg PO DAILY 10/22/14 [History] Insulin Aspart [NovoLOG] 10 units SUBCUT TID 10/22/14 [History] Lisinopril 40 mg PO DAILY 10/22/14 [History] Hydrochlorothiazide 25 mg PO DAILY 04/23/17 [History] Past Medical History HEENT History: Reports: None Cardiovascular History: Reports: High Cholesterol, Hypertension Respiratory History: Reports: None Gastrointestinal History: Reports: None Genitourinary History: Reports: BPH, Retention, Urinary Other Genitourinary History: going to often Musculoskeletal History: Reports: Back Pain, Chronic, Osteoarthritis Other Musculoskeletal History: injections to both hips 3 weeks ago Neurological History: Reports: None Psychiatric History: Reports: None Endocrine/Metabolic History: Reports: Diabetes, Type II Hematologic History: Reports: None Immunologic History: Reports: None Oncologic (Cancer) History: Reports: None Dermatologic History: Reports: None - Infectious Disease History Infectious Disease History: Reports: Chicken Pox - Past Surgical History Head Surgeries/Procedures: Reports: None HEENT Surgical History: Reports: Tonsillectomy Other Musculoskeletal Surgeries/Procedures:: ankle surgury Social & Family History - Family History Family Medical History: Noncontributory - Tobacco Use Smoking Status *Q: Current Every Day Smoker Years of Tobacco use: 22 Packs/Tins Daily: 0.2 Used Tobacco, but Quit: No Month/Year Tobacco Last Used: october Second Hand Smoke Exposure: Yes - Caffeine Use Caffeine Use: Reports: Coffee - Alcohol Use Days Per Week of Alcohol Use: 0 - Recreational Drug Use Recreational Drug Use: No - Living Situation & Occupation Living situation: Reports: with Family Occupation: Employed ED ROS GENERAL - Review of Systems Review Of Systems: See Below Constitutional: Reports: No Symptoms HEENT: Reports: No Symptoms Respiratory: Reports: No Symptoms Cardiovascular: Reports: No Symptoms GI/Abdominal: Reports: Abdominal Pain (midsternal ). Denies: Difficulty Swallowing, Distension, Nausea, Vomiting : Reports: No Symptoms Musculoskeletal: Reports: No Symptoms Skin: Reports: No Symptoms Neurological: Reports: No Symptoms ED EXAM, GENERAL - Physical Exam Exam: See Below Exam Limited By: No Limitations General Appearance: Alert, No Apparent Distress, Anxious Eye Exam: Bilateral Eye: EOMI Ears: Normal External Exam Nose: Normal Inspection Throat/Mouth: Normal Inspection Head: Atraumatic, Normocephalic Neck: Normal Inspection Respiratory/Chest: No Respiratory Distress, Lungs Clear, Normal Breath Sounds. No: Respiratory Distress, Rhonchi, Wheezing Cardiovascular: Normal Peripheral Pulses, Regular Rate, Rhythm GI/Abdominal: Normal Bowel Sounds, Soft, Non-Tender Back Exam: Normal Inspection Extremities: Normal Inspection, Normal Range of Motion Neurological: Alert, Oriented, Normal Cognition Skin Exam: Warm, Dry, Intact, Normal Color Course - Vital Signs Last Recorded V/S: Last Vital Signs Temp 98.4 F 02/01/18 18:04 Pulse 87 02/01/18 20:00 Resp 20 02/01/18 20:00 BP 119/79 02/01/18 20:00 Pulse Ox 98 02/01/18 20:00 - Orders/Labs/Meds Orders: Active Orders 24 hr Category Date Time Status EKG Documentation Completion [RC] URGENT Care 02/01/18 17:43 Active Labs: Laboratory Tests 02/01/18 02/01/18 02/01/18 Range/Units 17:59 17:59 19:20 WBC 10.6 H (5.0-10.0) 10^3/uL RBC 5.04 (4.6-6.2) 10^6/uL Hgb 15.0 (14.0-18.0) g/dL Hct 42.2 (40.0-54.0) % MCV 83.7 (80-100) fL MCH 29.8 (27.0-34.0) pg MCHC 35.5 H (33.0-35.0) g/dL Plt Count 248 (150-450) 10^3/uL Neut % (Auto) 67.2 (42.2-75.2) % Lymph % (Auto) 22.8 (20.5-50.1) % [place] % (Auto) 6.9 (2-8) % Eos % (Auto) 2.7 (1.0-3.0) % Baso % (Auto) 0.4 (0.0-1.0) % D-Dimer, Quantitative < 100 (0-400) ng/mL Sodium 132 L (135-145) mmol/L Potassium 4.0 (3.6-5.0) mmol/L Chloride 102 (101-111) mmol/L Carbon Dioxide 23.0 (21.0-31.0) mmol/L Anion Gap 11.0 BUN 23 H (7-18) mg/dL Creatinine 0.7 (0.6-1.3) mg/dL Est Cr Clr Drug Dosing 95.18 mL/min Estimated GFR (MDRD) > 60 BUN/Creatinine Ratio 32.85 Glucose 306 H (74-105) mg/dL Calcium 8.9 (8.4-10.2) mg/dl Total Bilirubin 1.2 H (0.2-1.0) mg/dL AST 149 H (10-42) IU/L ALT 424 H (10-60) IU/L Alkaline Phosphatase 100 (42-121) IU/L Ammonia (11-35) umol/L Troponin I < 0.02 (0.00-0.02) ng/ml Total Protein 7.2 (6.7-8.2) g/dl Albumin 3.6 (3.2-5.5) g/dl Globulin 3.6 Albumin/Globulin Ratio 1.00 Amylase (28-100) U/L Lipase (22-51) U/L 02/01/18 02/01/18 Range/Units 19:20 19:20 WBC (5.0-10.0) 10^3/uL RBC (4.6-6.2) 10^6/uL Hgb (14.0-18.0) g/dL Hct (40.0-54.0) % MCV (80-100) fL MCH (27.0-34.0) pg MCHC (33.0-35.0) g/dL Plt Count (150-450) 10^3/uL Neut % (Auto) (42.2-75.2) % Lymph % (Auto) (20.5-50.1) % Robertson % (Auto) (2-8) % Eos % (Auto) (1.0-3.0) % Baso % (Auto) (0.0-1.0) % D-Dimer, Quantitative (0-400) ng/mL Sodium (135-145) mmol/L Potassium (3.6-5.0) mmol/L Chloride (101-111) mmol/L Carbon Dioxide (21.0-31.0) mmol/L Anion Gap BUN (7-18) mg/dL Creatinine (0.6-1.3) mg/dL Est Cr Clr Drug Dosing mL/min Estimated GFR (MDRD) BUN/Creatinine Ratio Glucose (74-105) mg/dL Calcium (8.4-10.2) mg/dl Total Bilirubin (0.2-1.0) mg/dL AST (10-42) IU/L ALT (10-60) IU/L Alkaline Phosphatase (42-121) IU/L Ammonia 26 (11-35) umol/L Troponin I (0.00-0.02) ng/ml Total Protein (6.7-8.2) g/dl Albumin (3.2-5.5) g/dl Globulin Albumin/Globulin Ratio Amylase 43 (28-100) U/L Lipase 14 L (22-51) U/L Meds: Medications Discontinued Medications Generic Name Dose Route Start Last Admin Trade Name Freq PRN Reason Stop Dose Admin Al Hydroxide/Mg Hydroxide 30 ml 02/01/18 19:44 02/01/18 19:48 Gi Cocktail PO 02/01/18 19:45 30 ml ONETIME ONE Administration - Radiology Interpretation Free Text/Narrative:: CXR no cardiopulmonary process - Re-Assessments/Exams Free Text/Narrative Re-Assessment/Exam: 02/02/18 00:15 Relief of symptoms with GI cocktail. Patient eloped. Found to have discontinued own IV. Departure - Departure Time of Disposition: 20:54 Disposition: Eloped 07 Condition: Good Clinical Impression: Gastroesophageal reflux disease Qualifiers: Esophagitis presence: with esophagitis Qualified Code(s): K21.0 - Gastro- esophageal reflux disease with esophagitis Forms: ED Department Discharge Additional Instructions: Dolores diet low fact low acid Mallox as needed follow up in clinic on Sunday zantac 150mg one twice daily as needed for indigestion
[2018-02-01] MEDS ORDERED: GI Cocktail Oral Solution 30 ML PO ONE (19:44)
[2018-02-01 21:11] VITALS: BP 119/79
== END 2018-02-01 21:06 | disposition left against medical advice (07) ==
LOC: DL.ED 17:32
DX: K21.0 Gastro-esophageal reflux disease with esophagitis (principal); I10 Essential (primary) hypertension; F17.210 Nicotine dependence, cigarettes, uncomplicated; E11.9 Type 2 diabetes mellitus without complications; Z79.82 Long term (current) use of aspirin; Z79.4 Long term (current) use of insulin; Z79.899 Other long term (current) drug therapy
CPT/HCPCS: 36415; 71045; 80053; 82140; 82150; 83690; 84484; 85025; 85379; 93005; 99285; A9270; 93010

== ENCOUNTER 2018-11-14 16:48 | Emergency (ER) | payer MEDICAID ==
[2018-11-14 17:04] VITALS: BP 129/68
--- NOTE | 2018-11-14 17:14 | EDM.PDOC ---
ED HPI GENERAL MEDICAL PROBLEM - General Stated Complaint: COLLAR BONE FRACTURE? [id number] Time Seen by Provider: 11/14/18 17:00 Source of Information: Reports: Patient History Limitations: Reports: No Limitations - History of Present Illness INITIAL COMMENTS - FREE TEXT/NARRATIVE: This 63 yo male patient reports to the ED with increased pain in his right shoulder. The patient reports he fell off his steps about 1 month ago and has been experiencing increased pain especially at night. The patient reports some weakness to raising his right hand over his head. Duration: Week(s):, Constant Location: Reports: Upper Extremity, Right Quality: Reports: Ache, Dull Severity: Moderate Improves with: Reports: Rest Worsens with: Reports: Movement Context: Reports: Other Associated Symptoms: Reports: No Other Symptoms Right Shoulder Pain Score (Numeric/FACES): 8 - Related Data Allergies Allergy/AdvReac Type Severity Reaction Status Date / Time No Known Allergies Allergy Verified 11/14/18 17:00 Home Meds: Home Meds Gabapentin 600 mg PO TID 10/14/14 [History] Insulin Glarg,Human.Rec.Analog [Lantus] 40 units SUBCUT DAILY 10/14/14 [History] Simvastatin 10 mg PO DAILY 10/14/14 [History] Aspirin [Halfprin] 81 mg PO DAILY 10/22/14 [History] Insulin Aspart [NovoLOG] 10 units SUBCUT TID 10/22/14 [History] Lisinopril 40 mg PO DAILY 10/22/14 [History] hydroCHLOROthiazide [Hydrochlorothiazide] 25 mg PO DAILY 04/23/17 [History] Past Medical History HEENT History: Reports: None Cardiovascular History: Reports: High Cholesterol, Hypertension Respiratory History: Reports: None Gastrointestinal History: Reports: None Genitourinary History: Reports: BPH, Retention, Urinary Other Genitourinary History: going to often Musculoskeletal History: Reports: Arthritis, Back Pain, Chronic, Osteoarthritis Other Musculoskeletal History: injections to both hips 3 weeks ago Neurological History: Reports: None Psychiatric History: Reports: None Endocrine/Metabolic History: Reports: Diabetes, Type II Hematologic History: Reports: None Immunologic History: Reports: None Oncologic (Cancer) History: Reports: None Dermatologic History: Reports: None - Infectious Disease History Infectious Disease History: Reports: Chicken Pox - Past Surgical History Head Surgeries/Procedures: Reports: None HEENT Surgical History: Reports: Adenoidectomy, Tonsillectomy Other Musculoskeletal Surgeries/Procedures:: ankle surgury Social & Family History - Family History Family Medical History: Noncontributory - Tobacco Use Smoking Status *Q: Current Every Day Smoker Years of Tobacco use: 10 Packs/Tins Daily: 0.2 - Caffeine Use Caffeine Use: Reports: Coffee, Soda, Tea - Recreational Drug Use Recreational Drug Use: No - Living Situation & Occupation Living situation: Reports: with Family Occupation: Employed Review of Systems - Review of Systems Review Of Systems: ROS reveals no pertinent complaints other than HPI. ED EXAM, GENERAL - Physical Exam Exam: See Below Exam Limited By: No Limitations General Appearance: Alert, WD/WN, No Apparent Distress Eye Exam: Bilateral Eye: EOMI, Normal Inspection, PERRL Ears: Normal External Exam, Normal Canal, Hearing Grossly Normal, Normal TMs Nose: Normal Inspection, Normal Mucosa, No Blood Throat/Mouth: Normal Inspection, Normal Lips, Normal Teeth, Normal Gums, Normal Oropharynx, Normal Voice, No Airway Compromise Head: Atraumatic, Normocephalic Neck: Normal Inspection, Supple, Non-Tender, Full Range of Motion Respiratory/Chest: No Respiratory Distress, Lungs Clear, Normal Breath Sounds, No Accessory Muscle Use, Chest Non-Tender Cardiovascular: Normal Peripheral Pulses, Regular Rate, Rhythm, No Edema, No Gallop, No JVD, No Murmur, No Rub GI/Abdominal: Normal Bowel Sounds, Soft, Non-Tender, No Organomegaly, No Distention, No Abnormal Bruit, No Mass (Male) Exam: Deferred Rectal (Males) Exam: Deferred Back Exam: Normal Inspection, Full Range of Motion, NT Extremities: Arm Pain (right shoulder pain with abduction. ) Neurological: Alert, Oriented, CN II-XII Intact, Normal Cognition, Normal Gait, Normal Reflexes, No Motor/Sensory Deficits Psychiatric: Normal Affect, Normal Mood Skin Exam: Warm, Dry, Intact, Normal Color, No Rash Lymphatic: No Adenopathy Course - Vital Signs Last Recorded V/S: Last Vital Signs Temp 36.9 C 11/14/18 17:01 Pulse 84 11/14/18 17:01 Resp 16 11/14/18 17:01 BP 129/68 11/14/18 17:01 Pulse Ox 100 11/14/18 17:01 - Orders/Labs/Meds Orders: Active Orders 24 hr Category Date Time Status Clavicle Rt [CR] Urgent Exams 11/14/18 16:56 Ordered Departure - Departure Time of Disposition: 17:12 Disposition: Home, Self-Care 01 Condition: Fair Clinical Impression: Right anterior shoulder pain - Discharge Information *PRESCRIPTION DRUG MONITORING PROGRAM REVIEWED*: Not Applicable *COPY OF PRESCRIPTION DRUG MONITORING REPORT IN PATIENT ALEJO: Not Applicable Instructions: Shoulder Range of Motion Exercises, Shoulder Pain, [id number] Forms: ED Department Discharge Care Plan Goals: The patient was advised of the examination and x-ray results during the visit. The patient was encouraged to continue to rest the area. The patient was given a list of exercises to help increase his range of motion in the should. If the patient continues to have symptoms, the patient was encouraged to follow-up with his primary care facility or return to the emergency department. - My Orders Last 24 Hours: My Active Orders 11/14/18 16:56 Clavicle Rt [CR] Urgent - Assessment/Plan Last 24 Hours: My Active Orders 11/14/18 16:56 Clavicle Rt [CR] Urgent
== END 2018-11-14 17:18 | disposition home or self-care (01) ==
LOC: DL.ED 16:48
DX: M25.511 Pain in right shoulder (principal); E78.00 Pure hypercholesterolemia, unspecified; I10 Essential (primary) hypertension; F17.210 Nicotine dependence, cigarettes, uncomplicated; Z79.4 Long term (current) use of insulin; Z79.899 Other long term (current) drug therapy
CPT/HCPCS: 73000-RT; 99283

== ENCOUNTER 2019-06-27 19:18 | Emergency (ER) | payer MEDICARE, MEDICAID ==
[2019-06-27] MEDS ORDERED: Bacitracin/Polymyxin B Ophth Oint 3.5 GM Tube EYERT ONE (19:19)
[2019-06-27 19:54] VITALS: BP 195/104; PULSE 94
--- NOTE | 2019-06-27 20:19 | EDM.PDOC ---
ED HPI GENERAL MEDICAL PROBLEM - General Chief Complaint: Eye Problems Stated Complaint: PAIN IN EYE Time Seen by Provider: 06/27/19 19:45 Source of Information: Reports: Patient History Limitations: Reports: No Limitations - History of Present Illness INITIAL COMMENTS - FREE TEXT/NARRATIVE: The patient reports concerns for right hip and eye pain. The patient states that his hip pain started to flare up 4-5 days ago. The pain is located to the anterolateral right hip and is described as sharp, constant, and nonradiating. The patient does report a history of arthritis and that he has had multiple injections to the hip. Movement and touch make his pain worse while Advil PM offers good relief. The patient does note that his gabapentin and Suboxone have not provided any relief. The patient also reports right eye pain; this pain started early today. The pain is described as "stinging" and "burning." He has noticed some swelling and redness to his lower right eyelid. No vision changes. No other concerns reported. Onset: Other (Hip pain 4-5 days, eye pain today) Duration: Getting Worse Location: Reports: Face, Lower Extremity, Right Quality: Reports: Burning, Sharp Severity: Moderate Improves with: Reports: Medication (Advil PM) Worsens with: Reports: Movement Associated Symptoms: Reports: No Other Symptoms Right Hip Pain Score (Numeric/FACES): 8 - Related Data Allergies Allergy/AdvReac Type Severity Reaction Status Date / Time No Known Allergies Allergy Verified 06/27/19 19:54 Home Meds: Home Meds Insulin Glarg,Human.Rec.Analog [Lantus] 44 units SUBCUT BEDTIME 10/14/14 [ History] Simvastatin 10 mg PO DAILY 10/14/14 [History] Aspirin [Halfprin] 81 mg PO DAILY 10/22/14 [History] Insulin Aspart [NovoLOG] 10 units SUBCUT TID 10/22/14 [History] Lisinopril 40 mg PO DAILY 10/22/14 [History] hydroCHLOROthiazide [Hydrochlorothiazide] 25 mg PO DAILY 04/23/17 [History] Buprenorphine HCl/Naloxone HCl [Suboxone 12 mg-3 mg Sl Film] 1 each SL DAILY 04/09 [History] Gabapentin [Neurontin] 600 mg PO TID 06/27/19 [History] Past Medical History HEENT History: Reports: None Cardiovascular History: Reports: High Cholesterol, Hypertension Respiratory History: Reports: None Gastrointestinal History: Reports: None Genitourinary History: Reports: BPH, Retention, Urinary Other Genitourinary History: going to often Musculoskeletal History: Reports: Arthritis, Back Pain, Chronic, Osteoarthritis Other Musculoskeletal History: injections to both hips 3 weeks ago Neurological History: Reports: None Psychiatric History: Reports: Addiction Endocrine/Metabolic History: Reports: Diabetes, Type II Hematologic History: Reports: None Immunologic History: Reports: None Oncologic (Cancer) History: Reports: None Dermatologic History: Reports: None - Infectious Disease History Infectious Disease History: Reports: Chicken Pox - Past Surgical History Head Surgeries/Procedures: Reports: None HEENT Surgical History: Reports: Adenoidectomy, Tonsillectomy Other Musculoskeletal Surgeries/Procedures:: ankle surgury Social & Family History - Family History Family Medical History: Noncontributory - Tobacco Use Smoking Status *Q: Current Every Day Smoker Years of Tobacco use: 5 Packs/Tins Daily: 0.2 - Caffeine Use Caffeine Use: Reports: Coffee - Recreational Drug Use Recreational Drug Use: No - Living Situation & Occupation Living situation: Reports: with Family Occupation: Employed ED ROS GENERAL - Review of Systems Review Of Systems: See Below Constitutional: Reports: No Symptoms HEENT: Reports: Eye Pain Respiratory: Reports: No Symptoms Cardiovascular: Reports: No Symptoms Endocrine: Reports: No Symptoms GI/Abdominal: Reports: No Symptoms : Reports: No Symptoms Musculoskeletal: Reports: Joint Pain (right hip) Skin: Reports: Erythema (redness and swelling to right lower eyelid) Neurological: Reports: No Symptoms ED EXAM GENERAL W FULL EYE - Physical Exam Exam: See Below Exam Limited By: No Limitations General Appearance: Alert, No Apparent Distress Eye Exam: Right Eye: Conjunctival Injection (Right conjunctival erythema), Bilateral Eye: EOMI, PERRL Eyelids: Right: Edema (lower), Stye (lower) Ears: Normal External Exam Nose: Normal Inspection Throat/Mouth: Normal Inspection Head: Atraumatic, Normocephalic Neck: Normal Inspection Respiratory/Chest: No Respiratory Distress, Lungs Clear Cardiovascular: Regular Rate, Rhythm, No Murmur GI/Abdominal: Normal Bowel Sounds, Soft, Non-Tender Extremities: Non-Tender, No Pedal Edema Neurological: Alert, Oriented, CN II-XII Intact Course - Vital Signs Last Recorded V/S: Last Vital Signs Temp 99.0 F 06/27/19 19:25 Pulse 94 06/27/19 19:25 Resp 16 06/27/19 19:25 BP 195/104 H 06/27/19 19:25 Pulse Ox 99 06/27/19 19:25 - Orders/Labs/Meds Meds: Medications Discontinued Medications Generic Name Dose Route Start Last Admin Trade Name Smiley PRN Reason Stop Dose Admin Bacitracin/Polymyxin B Sulfate Confirm 06/27/19 21:02 06/27/19 21:15 Polysporin Ophth Oint Administered 06/27/19 21:03 Not Given Dose 3.5 gm .ROUTE .STK-MED ONE Bacitracin/Polymyxin B Sulfate 3.5 gm 06/27/19 19:19 Polysporin Ophth Oint EYERT 06/27/19 19:20 .STK-MED ONE - Radiology Interpretation Free Text/Narrative:: [facility] [place] [facility] Final Radiology Report Call: [phone] assistance Online chat: [email or web address] Name: CATHLEEN CASTAÑEDA Age: 64Years M Date: 06/27/2019 SSN: -- : [id number] Study: XR HIP COMPLETE UNILAT MIN OF 2 VIEWS RIGHT Requesting Physician: CRICKET FLORES Images: 2 Addl Studies: Provided Clinical History: Contrast: Contrast Medium: Contrast Amount: Contrast Method: CONFIDENTIALITY STATEMENT This report is intended only for use by the referring physician, and only in accordance with law. If you received this in error, call [phone]. Page 1 of 1 EXAM: XR Right Hip with Pelvis when Performed EXAM DATE/TIME: 06/27/2019 8:16 PM CLINICAL HISTORY: 64 years old, male; Other: Increased pain--hx arthritis TECHNIQUE: Imaging protocol: XR Right hip with pelvis when performed. Views: 2 or 3 views. COMPARISON: CR Hip Min 2V or 3V w Pelvis Rt 08/09/2017 12:27 PM FINDINGS: Bones/joints: There are moderate degenerative changes in the right hip joint.There are mild degenerative changes in the left hip joint. There is no evidence of acute fracture. Soft tissues: No soft tissue swelling is identified. IMPRESSION: No acute abnormality. Thank you for allowing us to participate in the care of your patient. Dictated and Authenticated by: Cooper Persaud MD 06/27/2019 8:28 PM Central Time ([place] & [place]) Departure - Departure Time of Disposition: 21:06 Disposition: Home, Self-Care 01 Condition: Good Clinical Impression: Right hip pain Stye Qualifiers: Laterality: right Eyelid: lower Qualified Code(s): H00.012 - Hordeolum externum right lower eyelid Hip pain Qualifiers: Laterality: right Qualified Code(s): M25.551 - Pain in right hip - Discharge Information *PRESCRIPTION DRUG MONITORING PROGRAM REVIEWED*: Yes *COPY OF PRESCRIPTION DRUG MONITORING REPORT IN PATIENT ALEJO: No Instructions: Hip Pain, Stye Referrals: PCP,None [Primary Care Provider] - Forms: ED Department Discharge Additional Instructions: Apply polysporin opth ointment 4 times per day for 5 days. Monitor for signs of infection to skin surrounding the right eye; if swelling, redness, warmth, and/or drainage develops you should be evaluated. May take ibuprofen 400mg four times per day. Follow up in one week for recheck of right eye and right hip or sooner if needed.
[2019-06-27] MEDS ORDERED: Bacitracin/Polymyxin B Ophth Oint 3.5 GM Tube ONE (21:02)
== END 2019-06-27 21:22 | disposition home or self-care (01) ==
LOC: DL.ED 19:18
DX: H00.012 Hordeolum externum right lower eyelid (principal); M25.551 Pain in right hip; I10 Essential (primary) hypertension; E11.9 Type 2 diabetes mellitus without complications; F17.210 Nicotine dependence, cigarettes, uncomplicated; E78.00 Pure hypercholesterolemia, unspecified; M19.90 Unspecified osteoarthritis, unspecified site; Z79.4 Long term (current) use of insulin; Z79.82 Long term (current) use of aspirin; Z79.899 Other long term (current) drug therapy; Z98.890 Other specified postprocedural states
CPT/HCPCS: 99283-25; A9270-GY

== ENCOUNTER 2020-04-20 18:45 | Emergency (ER) | payer MEDICAID, MEDICARE ==
[2020-04-20 18:58] VITALS: BP 166/69; PULSE 85
--- NOTE | 2020-04-20 19:25 | CR ---
PROCEDURE INFORMATION: Exam: XR Chest, 1 View Exam date and time: 04/20/2020 7:17 PM Age: 65 years old Clinical indication: Shortness of breath TECHNIQUE: Imaging protocol: XR of the chest Views: 1 view. COMPARISON: CR Chest 1V Frontal 10/01/2018 10:57 AM FINDINGS: Lungs: Subcentimeter granuloma right lung stable. This has been documented on multiple prior studies. The lungs are mildly hyperinflated. There is no evidence of focal pulmonary consolidation. There is no interstitial disease. There is no evidence of pulmonary edema. Pleural space: Unremarkable. No pleural effusion. No pneumothorax. Heart/Mediastinum: Unremarkable. No cardiomegaly. Bones/joints: Unremarkable. IMPRESSION: The lungs are mildly hyperinflated. No acute findings. No change.
--- NOTE | 2020-04-20 19:31 | EDM.PDOC ---
ED HPI GENERAL MEDICAL PROBLEM - General Chief Complaint: Respiratory Problem Stated Complaint: SOB Time Seen by Provider: 04/20/20 19:15 Source of Information: Reports: Patient History Limitations: Reports: No Limitations - History of Present Illness INITIAL COMMENTS - FREE TEXT/NARRATIVE: This 65 yo male patient reports to the ED due to 2 day of increased shortness of breath. The patient also reports dizziness with the shortness of breath. The patient reports that he fell yesterday due to being dizzy. The patient states that his air conditioning has not been working in his home and it was well over 100 degrees in his home yesterday. Onset Date: 04/19/20 Duration: Constant Location: Reports: Generalized Quality: Reports: Other Severity: Moderate Improves with: Reports: None Worsens with: Reports: None Context: Reports: Other Associated Symptoms: Reports: No Other Symptoms - Related Data Allergies Allergy/AdvReac Type Severity Reaction Status Date / Time No Known Allergies Allergy Verified 04/20/20 19:23 Home Meds: Home Meds Insulin Glarg,Human.Rec.Analog [Lantus] 44 units SUBCUT BEDTIME 10/14/14 [History] Simvastatin 10 mg PO DAILY 10/14/14 [History] Aspirin [Halfprin] 81 mg PO DAILY 10/22/14 [History] Insulin Aspart [NovoLOG] 10 units SUBCUT TID 10/22/14 [History] Lisinopril 40 mg PO DAILY 10/22/14 [History] hydroCHLOROthiazide [Hydrochlorothiazide] 25 mg PO DAILY 04/23/17 [History] Buprenorphine HCl/Naloxone HCl [Suboxone 12 mg-3 mg Sl Film] 1 each SL DAILY 04/26/19 [History] Gabapentin [Neurontin] 600 mg PO TID 06/27/19 [History] Past Medical History HEENT History: Reports: None Cardiovascular History: Reports: High Cholesterol, Hypertension Respiratory History: Reports: None Gastrointestinal History: Reports: None Genitourinary History: Reports: BPH, Retention, Urinary Other Genitourinary History: going to often Musculoskeletal History: Reports: Arthritis, Back Pain, Chronic, Osteoarthritis Other Musculoskeletal History: injections to both hips 3 weeks ago Neurological History: Reports: None Psychiatric History: Reports: Addiction Endocrine/Metabolic History: Reports: Diabetes, Type II Hematologic History: Reports: None Immunologic History: Reports: None Oncologic (Cancer) History: Reports: None Dermatologic History: Reports: None - Infectious Disease History Infectious Disease History: Reports: Chicken Pox - Past Surgical History Head Surgeries/Procedures: Reports: None HEENT Surgical History: Reports: Adenoidectomy, Tonsillectomy Other Musculoskeletal Surgeries/Procedures:: ankle surgury Social & Family History - Family History Family Medical History: Noncontributory - Tobacco Use Smoking Status *Q: Current Every Day Smoker Years of Tobacco use: 1 Packs/Tins Daily: 0.5 - Caffeine Use Caffeine Use: Reports: None - Recreational Drug Use Recreational Drug Use: No - Living Situation & Occupation Living situation: Reports: with Family Occupation: Employed ED ROS GENERAL - Review of Systems Review Of Systems: Comprehensive ROS is negative, except as noted in HPI. ED EXAM, GENERAL - Physical Exam Exam: See Below Exam Limited By: No Limitations General Appearance: Alert, WD/WN, Mild Distress Eye Exam: Bilateral Eye: EOMI, Normal Inspection, PERRL Ears: Normal External Exam, Normal Canal, Hearing Grossly Normal, Normal TMs Nose: Normal Inspection, Normal Mucosa, No Blood Throat/Mouth: Normal Inspection, Normal Lips, Normal Teeth, Normal Gums, Normal Oropharynx, Normal Voice, No Airway Compromise Head: Atraumatic, Normocephalic Neck: Normal Inspection, Supple, Non-Tender, Full Range of Motion Respiratory/Chest: No Respiratory Distress, No Accessory Muscle Use, Chest Non- Tender, Decreased Breath Sounds (right side) Cardiovascular: Normal Peripheral Pulses, Regular Rate, Rhythm, No Edema, No Gallop, No JVD, No Murmur, No Rub GI/Abdominal: Normal Bowel Sounds, Soft, Non-Tender, No Organomegaly, No Distention, No Abnormal Bruit, No Mass (Male) Exam: Deferred Rectal (Males) Exam: Deferred Back Exam: Normal Inspection, Full Range of Motion, NT Extremities: Normal Inspection, Normal Range of Motion, Non-Tender, Normal Capillary Refill, No Pedal Edema Neurological: Alert, Oriented, CN II-XII Intact, Normal Cognition, Normal Gait, Normal Reflexes, No Motor/Sensory Deficits Psychiatric: Normal Affect, Normal Mood Skin Exam: Warm, Dry, Intact, Normal Color, No Rash Lymphatic: No Adenopathy Course - Vital Signs Last Recorded V/S: Last Vital Signs Temp 36.4 C 04/20/20 18:56 Pulse 85 04/20/20 18:56 Resp 20 04/20/20 18:56 BP 166/69 H 04/20/20 18:56 Pulse Ox 100 04/20/20 18:56 - Orders/Labs/Meds Orders: Active Orders 24 hr Category Date Time Status EKG Documentation Completion [RC] STAT Care 04/20/20 19:05 Active Labs: Laboratory Tests 04/20/20 04/20/20 Range/Units 19:18 19:18 WBC 10.6 H (5.0-10.0) 10^3/uL RBC 4.97 (4.6-6.2) 10^6/uL Hgb 14.4 (14.0-18.0) g/dL Hct 41.6 (40.0-54.0) % MCV 83.7 (80-100) fL MCH 29.0 (27.0-34.0) pg MCHC 34.6 (33.0-35.0) g/dL Plt Count 333 D (150-450) 10^3/uL Neut % (Auto) 73.2 (42.2-75.2) % Lymph % (Auto) 18.4 L (20.5-50.1) % Hutchinson % (Auto) 5.8 (2-8) % Eos % (Auto) 2.4 (1.0-3.0) % Baso % (Auto) 0.2 (0.0-1.0) % Sodium 124 L (136-145) mmol/L Potassium 5.0 (3.5-5.1) mmol/L Chloride 89 L (98-107) mmol/L Carbon Dioxide 27 (21-32) mmol/L Anion Gap 13.0 (7-13) mEq/L BUN 25 H (7-18) mg/dL Creatinine 0.99 (0.70-1.30) mg/dL Est Cr Clr Drug Dosing 64.71 mL/min Estimated GFR (MDRD) > 60 BUN/Creatinine Ratio 25.3 (No establ ref range) Glucose 594 H* (74-99) mg/dL Calcium 9.6 (8.5-10.1) mg/dL Total Bilirubin 0.6 (0.2-1.0) mg/dL AST 13 L (15-37) U/L ALT 26 (16-63) U/L Alkaline Phosphatase 194 H (46-116) U/L Troponin I < 0.017 (0.000-0.056) ng/mL Total Protein 8.5 H (6.4-8.2) g/dL Albumin 3.9 (3.4-5.0) g/dL Globulin 4.6 Albumin/Globulin Ratio 0.8 Meds: Medications Discontinued Medications Generic Name Dose Route Start Last Admin Trade Name Smiley PRN Reason Stop Dose Admin Sodium Chloride 1,000 mls @ 999 mls/hr 04/20/20 19:50 04/20/20 20:02 Normal Saline IV 04/20/20 20:50 999 mls/hr .BOLUS ONE Administration Departure - Departure Time of Disposition: 21:06 Disposition: Home, Self-Care 01 Condition: Fair Clinical Impression: Hyponatremia Uncontrolled diabetes mellitus Qualifiers: Diabetes mellitus type: type 1 Glycemic state: with hyperglycemia Qualified Code(s): E10.65 - Type 1 diabetes mellitus with hyperglycemia Heat exhaustion Qualifiers: Encounter type: initial encounter Qualified Code(s): T67.5XXA - Heat exhaustion, unspecified, initial encounter - Discharge Information *PRESCRIPTION DRUG MONITORING PROGRAM REVIEWED*: Not Applicable *COPY OF PRESCRIPTION DRUG MONITORING REPORT IN PATIENT ALEJO: Not Applicable Instructions: Hyperglycemia, [id number], Heat Exhaustion Forms: ED Department Discharge Care Plan Goals: The patient was advised of the examination, EKG, lab and x-ray results during the visit. The patient was given IV fluids while in the emergency department. The patient was advised to take his insulin as directed and to monitor his blood sugar levels. The patient was encouraged to stay in a cool place and increase his oral fluid intake. If the patient has any additional symptoms or concerns, the patient should either return to the emergency department or visit his primary care facility. Sepsis Event Note (ED) - Evaluation Sepsis Screening Result: No Definite Risk - Focused Exam Vital Signs: Vital Signs Temp Pulse Resp BP Pulse Ox 04/20/20 18:56 36.4 C 85 20 166/69 H 100 - My Orders Last 24 Hours: My Active Orders 04/20/20 19:05 EKG Documentation Completion [RC] STAT - Assessment/Plan Last 24 Hours: My Active Orders 04/20/20 19:05 EKG Documentation Completion [RC] STAT
[2020-04-20 19:42] LABS: CHLORIDE,CL 89 mmol/L (98-107); SODIUM,NA 124 mmol/L (136-145)
[2020-04-20] MEDS ORDERED: Sodium Chloride 0.9% 1,000 ML IV ONE (19:50)
== END 2020-04-20 21:15 | disposition home or self-care (01) ==
LOC: DL.ED 18:45
DX: T67.5XXA Heat exhaustion, unspecified, initial encounter (principal); E10.65 Type 1 diabetes mellitus with hyperglycemia; E87.1 Hypo-osmolality and hyponatremia; I10 Essential (primary) hypertension; E78.00 Pure hypercholesterolemia, unspecified; M19.90 Unspecified osteoarthritis, unspecified site; F17.210 Nicotine dependence, cigarettes, uncomplicated; Z79.82 Long term (current) use of aspirin; Z79.899 Other long term (current) drug therapy
CPT/HCPCS: 36415; 71045; 80053; 84484; 85025; 93005; 96360; 99284; 99285; J7030

== ENCOUNTER 2021-02-19 13:40 | Emergency (ER) | payer MEDICARE ==
[2021-02-19 13:48] VITALS: BP 153/79; PULSE 89
[2021-02-19] MEDS ORDERED: Mupirocin Oint 22 GM Tube TOP ONE (14:13)
[2021-02-19] MEDS ORDERED: Doxycycline Monohydrate 100 MG Cap PO ONE (14:14)
--- NOTE | 2021-02-19 14:21 | EDM.PDOC ---
Scribed by Judy Maldonado 02/19/21 1421 for Alex Lee MD ED HPI GENERAL MEDICAL PROBLEM - General Chief Complaint: Lower Extremity Injury/Pain Stated Complaint: INFECTED FOOT CUT / DIABETIC Time Seen by Provider: 02/19/21 13:59 Source of Information: Reports: Patient, RN, RN Notes Reviewed History Limitations: Reports: No Limitations - History of Present Illness INITIAL COMMENTS - FREE TEXT/NARRATIVE: Patient presents to ED by POV patient stating he was scrubbing hsi foot with a washcloth yesterday and accidentally scrubbed the skin off, top of the left foot. Patient is a diabetic and has peripheral neuropathy and doesn't feel his feet. He was distracted by a conversation as he was scrubbing when he looked down he realized he had scrubbed the skin off of a large area. Denies fever or wound drainage. Denies any other complaints. Onset: Gradual Duration: Getting Worse Location: Reports: Lower Extremity, Left Quality: Reports: Ache Severity: Moderate Improves with: Reports: None Worsens with: Reports: None Associated Symptoms: Reports: No Other Symptoms Left Feet Pain Score (Numeric/FACES): 4 - Related Data Allergies Allergy/AdvReac Type Severity Reaction Status Date / Time No Known Allergies Allergy Verified 04/20/20 19:23 Home Meds: Home Meds Insulin Glarg,Human.Rec.Analog [Lantus] 44 units SUBCUT BEDTIME 10/14/14 [History] Simvastatin 10 mg PO DAILY 10/14/14 [History] Aspirin [Halfprin] 81 mg PO DAILY 10/22/14 [History] Insulin Aspart [NovoLOG] 10 units SUBCUT TID 10/22/14 [History] Lisinopril 40 mg PO DAILY 10/22/14 [History] hydroCHLOROthiazide [Hydrochlorothiazide] 25 mg PO DAILY 04/23/17 [History] Buprenorphine HCl/Naloxone HCl [Suboxone 12 mg-3 mg Sl Film] 1 each SL DAILY 04/26/19 [History] Gabapentin [Neurontin] 600 mg PO TID 06/27/19 [History] Past Medical History HEENT History: Reports: None Cardiovascular History: Reports: High Cholesterol, Hypertension Respiratory History: Reports: None Gastrointestinal History: Reports: None Genitourinary History: Reports: BPH, Retention, Urinary Other Genitourinary History: going to often Musculoskeletal History: Reports: Arthritis, Back Pain, Chronic, Osteoarthritis Other Musculoskeletal History: injections to both hips 3 weeks ago Neurological History: Reports: None Psychiatric History: Reports: Addiction Endocrine/Metabolic History: Reports: Diabetes, Type II Hematologic History: Reports: None Immunologic History: Reports: None Oncologic (Cancer) History: Reports: None Dermatologic History: Reports: None - Infectious Disease History Infectious Disease History: Reports: Chicken Pox - Past Surgical History Head Surgeries/Procedures: Reports: None HEENT Surgical History: Reports: Adenoidectomy, Tonsillectomy Other Musculoskeletal Surgeries/Procedures:: ankle surgury Social & Family History - Family History Family Medical History: No Pertinent Family History - Caffeine Use Caffeine Use: Reports: None - Living Situation & Occupation Living situation: Reports: with Family Occupation: Employed Review of Systems - Review of Systems Review Of Systems: Comprehensive ROS is negative, except as noted in HPI. ED EXAM, GENERAL - Physical Exam Exam: See Below Exam Limited By: No Limitations General Appearance: Alert, WD/WN, No Apparent Distress Throat/Mouth: Normal Voice, No Airway Compromise Head: Atraumatic, Normocephalic Neck: Normal Inspection Respiratory/Chest: No Respiratory Distress, Lungs Clear Cardiovascular: Regular Rate, Rhythm Peripheral Pulses: 1+: Dorsalis Pedis (L), Dorsalis Pedis (R), 2+: Posterior Tibial (L), Posterior Tibial (R) Extremities: Normal Range of Motion, Normal Capillary Refill, Other (Dorsum of left foot has a superficial abrasion 5cm x 2.5cm no FB, no bleeding, no signs of infection) Neurological: Alert, Oriented, No Motor/Sensory Deficits Psychiatric: Normal Mood Skin Exam: Warm, Dry, Normal Color Course - Vital Signs Last Recorded V/S: Last Vital Signs Temp 96.8 F L 02/19/21 13:46 Pulse 89 02/19/21 13:46 Resp 18 02/19/21 13:46 BP 153/79 H 02/19/21 13:46 Pulse Ox 98 02/19/21 13:46 - Orders/Labs/Meds Meds: Medications Discontinued Medications Generic Name Dose Route Start Last Admin Trade Name Freq PRN Reason Stop Dose Admin Doxycycline Monohydrate 100 mg 02/19/21 14:14 Doxycycline Monohydrate 100 Mg Cap PO 02/19/21 14:15 ONETIME ONE Mupirocin 15 gm 02/19/21 14:13 Mupirocin Oint 22 Gm Tube TOP 02/19/21 14:14 ONETIME ONE Departure - Departure Time of Disposition: 14:18 Disposition: Home, Self-Care 01 Condition: Good Clinical Impression: Abrasion, left foot, initial encounter Open wound of left foot Qualifiers: Encounter type: initial encounter Qualified Code(s): S91.302A - Unspecified open wound, left foot, initial encounter - Discharge Information *PRESCRIPTION DRUG MONITORING PROGRAM REVIEWED*: Not Applicable *COPY OF PRESCRIPTION DRUG MONITORING REPORT IN PATIENT ALEJO: Not Applicable Instructions: Abrasion Forms: ED Department Discharge Additional Instructions: Rx: Doxycycline 100mg Rx: Bactroban Ointment 2% Keep left foot clean and dry. Check your left foot daily for redness or other signs of infection. Follow up in clinic or ER if any signs of infection develop. Sepsis Event Note (ED) - Evaluation Sepsis Screening Result: No Definite Risk - Focused Exam Vital Signs: Vital Signs Temp Pulse Resp BP Pulse Ox 02/19/21 13:46 96.8 F L 89 18 153/79 H 98 I have read and agree with the documentation that has been completed regarding this visit. By signing this record, I attest that the documentation was completed in my physical presence and is an accurate record of the encounter.
== END 2021-02-19 14:45 | disposition home or self-care (01) ==
LOC: DL.ED 13:40
DX: S91.302A Unspecified open wound, left foot, initial encounter (principal); E78.00 Pure hypercholesterolemia, unspecified; I10 Essential (primary) hypertension; E11.40 Type 2 diabetes mellitus with diabetic neuropathy, unspecified; Z79.82 Long term (current) use of aspirin; Z79.4 Long term (current) use of insulin; Z79.899 Other long term (current) drug therapy; X58.XXXA Exposure to other specified factors, initial encounter
CPT/HCPCS: 99283; A9270

== ENCOUNTER 2021-06-09 18:20 | Emergency (ER) | payer MEDICARE ==
[2021-06-09 19:12] VITALS: BP 119/61; PULSE 77
[2021-06-09] MEDS ORDERED: Sodium Chloride 0.9% 10 ML Syringe FLUSH PRN (19:34)
[2021-06-09] MEDS ORDERED: Sodium Chloride 0.9% 1,000 ML IV ONE (19:35)
--- NOTE | 2021-06-09 20:03 | EDM.PDOC ---
ED HPI GENERAL MEDICAL PROBLEM - General Chief Complaint: General Stated Complaint: AMBULANCE Time Seen by Provider: 06/09/21 20:01 Source of Information: Reports: Patient History Limitations: Reports: No Limitations - History of Present Illness INITIAL COMMENTS - FREE TEXT/NARRATIVE: Patient is unfortunate 66-year-old male who presents emerged department today with complaint of altered mental status. The patient was working out in his yard today reports he only had one meal and was not drinking much in the way of water. He reports that he became lightheaded and had a room spinning type dizziness which caused him to have a syncopal episode which she reports lasted a few seconds EMS was called and brought the patient emergency department for further evaluation. They reported the patient was confused and upon arrival to the emergency department during exam the patient is alert and oriented x3. The patient reports he had no longer has any dizziness he reports that he feels dehydrated he has no chest pain no shortness of breath no nausea no vomiting denies any Covid exposure - Related Data Allergies Allergy/AdvReac Type Severity Reaction Status Date / Time hydrochlorothiazide Allergy nightmares Verified 06/09/21 19:26 Home Meds: Home Meds Insulin Glarg,Human.Rec.Analog [Lantus] 40 units SUBCUT BEDTIME 10/14/14 [History] Aspirin [Halfprin] 81 mg PO DAILY 10/22/14 [History] Insulin Aspart [NovoLOG] 8 units SUBCUT TID 10/22/14 [History] Lisinopril 30 mg PO DAILY 10/22/14 [History] Buprenorphine HCl/Naloxone HCl [Suboxone 12 mg-3 mg Sl Film] 1 each SL DAILY 04/26/19 [History] Gabapentin [Neurontin] 600 mg PO TID 06/27/19 [History] Past Medical History HEENT History: Reports: None Cardiovascular History: Reports: High Cholesterol, Hypertension Respiratory History: Reports: None Gastrointestinal History: Reports: None Genitourinary History: Reports: BPH, Retention, Urinary Other Genitourinary History: going to often Musculoskeletal History: Reports: Arthritis, Back Pain, Chronic, Osteoarthritis Other Musculoskeletal History: injections to both hips 3 weeks ago Neurological History: Reports: None, TIA Psychiatric History: Reports: Addiction Endocrine/Metabolic History: Reports: Diabetes, Type II Hematologic History: Reports: None Immunologic History: Reports: None Oncologic (Cancer) History: Reports: None Dermatologic History: Reports: None - Infectious Disease History Infectious Disease History: Reports: Chicken Pox - Past Surgical History Head Surgeries/Procedures: Reports: None HEENT Surgical History: Reports: Adenoidectomy, Tonsillectomy Other Musculoskeletal Surgeries/Procedures:: ankle surgury Social & Family History - Family History Family Medical History: No Pertinent Family History - Tobacco Use Tobacco Use Status *Q: Current Every Day Tobacco User Years of Tobacco use: 36 Packs/Tins Daily: 0.5 - Caffeine Use Caffeine Use: Reports: Coffee - Recreational Drug Use Recreational Drug Use: No - Living Situation & Occupation Living situation: Reports: with Family Occupation: Employed ED ROS GENERAL - Review of Systems Review Of Systems: See Below Constitutional: Denies: Fever, Chills Respiratory: Denies: Shortness of Breath Cardiovascular: Denies: Chest Pain Neurological: Reports: Confusion, Dizziness, Syncope. Denies: Headache ED EXAM, GENERAL - Physical Exam Exam: See Below General Appearance: Alert, WD/WN, Mild Distress Nose: Normal Inspection, Normal Mucosa, No Blood Throat/Mouth: Normal Inspection, Normal Lips, Normal Teeth, Normal Gums, Normal Oropharynx, Normal Voice, No Airway Compromise Head: Atraumatic, Normocephalic Neck: Normal Inspection, Supple, Non-Tender, Full Range of Motion Respiratory/Chest: No Respiratory Distress, Lungs Clear, Normal Breath Sounds, No Accessory Muscle Use, Chest Non-Tender Cardiovascular: Normal Peripheral Pulses, Regular Rate, Rhythm, No Edema, No Gallop, No JVD, No Murmur, No Rub GI/Abdominal: Normal Bowel Sounds, Soft, Non-Tender, No Organomegaly, No Distention, No Abnormal Bruit, No Mass Back Exam: Normal Inspection, Full Range of Motion, NT Extremities: Normal Inspection, Normal Range of Motion, Non-Tender, Normal Capillary Refill, No Pedal Edema Neurological: Alert, Oriented, CN II-XII Intact, Normal Cognition, Normal Gait, Normal Reflexes, No Motor/Sensory Deficits Skin Exam: Warm, Dry, Intact, Normal Color, No Rash #1 Interpretation EKG Date: 06/09/21 Time: 20:04 Rhythm: NSR Porter: Normal P-Wave: Present QRS: Normal ST-T: Normal QT: Normal (No acute ischemic changes) Course - Vital Signs Text/Narrative:: CT head shows "impression: #1 there is moderate parenchymal volume loss. White matter changes are demonstrated in the subcortical, central some mobile in the periventricular white matter consistent with chronic age-related small vessel ischemic changes. #2 the degree of ventricular dilation is normal for age and/or degree of atrophy present. #3 no acute intracranial findings." Patient has a mild leukocytosis, he has had a syncopal episode, the patient's second troponin is negative, his mace is 3, the patient is at low risk his EKG showed no acute ischemic changes, patient refuses admission at this time, will be discharged home encouraged to follow-up outpatient with PCP or to return to the emergency department for any worsening condition Last Recorded V/S: Last Vital Signs Temp 97.7 F 06/09/21 18:20 Pulse 77 06/09/21 18:20 Resp 16 06/09/21 18:20 BP 119/61 06/09/21 18:20 Pulse Ox 98 06/09/21 18:20 - Orders/Labs/Meds Orders: Active Orders 24 hr Category Date Time Status Sodium Chloride 0.9% [Saline Flush] Med 06/09/21 19:34 Active 10 ml FLUSH ASDIRECTED PRN Saline Lock Insert [OM.PC] Stat Oth 06/09/21 19:35 Ordered Medication Orders Sodium Chloride (Sodium Chloride 0.9% 10 Ml Syringe) 10 ml FLUSH ASDIRECTED PRN PRN Reason: Keep Vein Open Labs: Laboratory Tests 06/09/21 06/09/21 06/09/21 Range/Units 18:32 19:47 19:47 WBC 16.5 H (5.0-10.0) 10^3/uL RBC 5.15 (4.6-6.2) 10^6/uL Hgb 15.3 (14.0-18.0) g/dL Hct 44.1 (40.0-54.0) % MCV 85.6 (80-100) fL MCH 29.7 (27.0-34.0) pg MCHC 34.7 (33.0-35.0) g/dL Plt Count 340 (150-450) 10^3/uL Neut % (Auto) 83.0 H (42.2-75.2) % Lymph % (Auto) 10.1 L (20.5-50.1) % Riley % (Auto) 4.6 (2-8) % Eos % (Auto) 2.1 (1.0-3.0) % Baso % (Auto) 0.2 (0.0-1.0) % Sodium 139 D (136-145) mmol/L Potassium 3.8 (3.5-5.1) mmol/L Chloride 100 (98-107) mmol/L Carbon Dioxide 30 (21-32) mmol/L Anion Gap 12.8 (7-13) mEq/L BUN 15 (7-18) mg/dL Creatinine 1.18 (0.70-1.30) mg/dL Est Cr Clr Drug Dosing 57.57 mL/min Estimated GFR (MDRD) > 60 BUN/Creatinine Ratio 12.7 (No establ ref range) Glucose 172 H (70-99) mg/dL POC Glucose 169 H (70-99) mg/dL Calcium 9.4 (8.5-10.1) mg/dL Total Bilirubin 0.6 (0.2-1.0) mg/dL AST 19 (15-37) U/L ALT 24 (16-63) U/L Alkaline Phosphatase 126 H (46-116) U/L Creatine Kinase (39-308) U/L Troponin I High Sens 17 (<=76) pg/mL Total Protein 8.8 H (6.4-8.2) g/dL Albumin 4.3 (3.4-5.0) g/dL Globulin 4.5 Albumin/Globulin Ratio 1.0 Urine Color (YELLOW) Urine Appearance (CLEAR) Urine pH (5.0-9.0) Ur Specific [place] (1.005-1.030) Urine Protein (NEGATIVE) Urine Glucose (UA) (NEGATIVE) Urine Ketones (NEGATIVE) Urine Occult Blood (NEGATIVE) Urine Nitrite (NEGATIVE) Urine Bilirubin (NEGATIVE) Urine Urobilinogen (0.2-1.0) mg/dL Ur Leukocyte Esterase (NEGATIVE) Urine RBC (0-5) /HPF Urine WBC (0-5/HPF) /HPF Ur Epithelial Cells (NOT SEEN) /HPF Urine Bacteria (0-FEW/HPF) /HPF 06/09/21 06/09/21 06/09/21 Range/Units 19:47 21:30 22:18 WBC (5.0-10.0) 10^3/uL RBC (4.6-6.2) 10^6/uL Hgb (14.0-18.0) g/dL Hct (40.0-54.0) % MCV (80-100) fL MCH (27.0-34.0) pg MCHC (33.0-35.0) g/dL Plt Count (150-450) 10^3/uL Neut % (Auto) (42.2-75.2) % Lymph % (Auto) (20.5-50.1) % Riley % (Auto) (2-8) % Eos % (Auto) (1.0-3.0) % Baso % (Auto) (0.0-1.0) % Sodium (136-145) mmol/L Potassium (3.5-5.1) mmol/L Chloride (98-107) mmol/L Carbon Dioxide (21-32) mmol/L Anion Gap (7-13) mEq/L BUN (7-18) mg/dL Creatinine (0.70-1.30) mg/dL Est Cr Clr Drug Dosing mL/min Estimated GFR (MDRD) BUN/Creatinine Ratio (No establ ref range) Glucose (70-99) mg/dL POC Glucose (70-99) mg/dL Calcium (8.5-10.1) mg/dL Total Bilirubin (0.2-1.0) mg/dL AST (15-37) U/L ALT (16-63) U/L Alkaline Phosphatase (46-116) U/L Creatine Kinase 99 (39-308) U/L Troponin I High Sens 26 (<=76) pg/mL Total Protein (6.4-8.2) g/dL Albumin (3.4-5.0) g/dL Globulin Albumin/Globulin Ratio Urine Color Yellow (YELLOW) Urine Appearance Slightly cloudy (CLEAR) Urine pH 7.0 (5.0-9.0) Ur Specific [place] 1.020 (1.005-1.030) Urine Protein Negative (NEGATIVE) Urine Glucose (UA) Negative (NEGATIVE) Urine Ketones Negative (NEGATIVE) Urine Occult Blood Trace-intact H (NEGATIVE) Urine Nitrite Negative (NEGATIVE) Urine Bilirubin Negative (NEGATIVE) Urine Urobilinogen 1.0 (0.2-1.0) mg/dL Ur Leukocyte Esterase Negative (NEGATIVE) Urine RBC 5-10 H (0-5) /HPF Urine WBC 0-5 (0-5/HPF) /HPF Ur Epithelial Cells Rare (NOT SEEN) /HPF Urine Bacteria Rare (0-FEW/HPF) /HPF Meds: Medications Generic Name Dose Route Start Last Admin Trade Name Freq PRN Reason Stop Dose Admin Sodium Chloride 10 ml 06/09/21 19:34 Sodium Chloride 0.9% 10 Ml Syringe FLUSH ASDIRECTED PRN Keep Vein Open Discontinued Medications Generic Name Dose Route Start Last Admin Trade Name Freq PRN Reason Stop Dose Admin Sodium Chloride 1,000 mls @ 1,000 mls/hr 06/09/21 19:35 06/09/21 19:54 Normal Saline IV 06/09/21 20:34 1,000 mls/hr .BOLUS ONE Administration Departure - Departure Time of Disposition: 23:04 Disposition: Home, Self-Care 01 Condition: Good Clinical Impression: Syncope Qualifiers: Syncope type: heat syncope Encounter type: initial encounter Qualified Code(s): T67.1XXA - Heat syncope, initial encounter Leukocytosis Qualifiers: Leukocytosis type: unspecified Qualified Code(s): D72.829 - Elevated white blood cell count, unspecified - Discharge Information *PRESCRIPTION DRUG MONITORING PROGRAM REVIEWED*: No *COPY OF PRESCRIPTION DRUG MONITORING REPORT IN PATIENT ALEJO: No Referrals: Lexis Garza MD [Physician] - Forms: ED Department Discharge Additional Instructions: Home, rest, adequate fluids, return as needed for any worsening condition Sepsis Event Note (ED) - Focused Exam Vital Signs: Vital Signs Temp Pulse Resp BP Pulse Ox 06/09/21 18:20 97.7 F 77 16 119/61 98 - My Orders Last 24 Hours: My Active Orders 06/09/21 19:34 Sodium Chloride 0.9% [Saline Flush] 10 ml FLUSH ASDIRECTED PRN 06/09/21 19:35 Saline Lock Insert [OM.PC] Stat - Assessment/Plan Last 24 Hours: My Active Orders 06/09/21 19:34 Sodium Chloride 0.9% [Saline Flush] 10 ml FLUSH ASDIRECTED PRN 06/09/21 19:35 Saline Lock Insert [OM.PC] Stat
[2021-06-09 20:14] LABS: ANION GAP 12.8 mEq/L (7-13); CHLORIDE,CL 100 mmol/L (98-107); SODIUM,NA 139 mmol/L (136-145)
--- NOTE | 2021-06-09 21:05 | CT ---
PROCEDURE INFORMATION: Exam: CT Head Without Contrast Exam date and time: 06/09/2021 8:22 PM Age: 66 years old Clinical indication: Syncope and collapse TECHNIQUE: Imaging protocol: Computed tomography of the head without contrast. Radiation optimization: All CT scans at this facility use at least one of these dose optimization techniques: automated exposure control; mA and/or kV adjustment per patient size (includes targeted exams where dose is matched to clinical indication); or iterative reconstruction. COMPARISON: CT Head wo Cont 10/02/2018 5:18 PM FINDINGS: Brain: There is moderate parenchymal volume loss. White matter changes are demonstrated in the subcortical, centrum semiovale and periventricular white matter consistent with chronic age related small vessel ischemic changes. Cerebral ventricles: The degree of ventricular dilatation is normal for age and/or degree of atrophy present. Paranasal sinuses: Visualized sinuses are unremarkable. No fluid levels. Mastoid air cells: Visualized mastoid air cells are well aerated. Bones/joints: Old nasal fracture demonstrated. Soft tissues: Unremarkable. IMPRESSION: 1. There is moderate parenchymal volume loss. White matter changes are demonstrated in the subcortical, centrum semiovale and periventricular white matter consistent with chronic age related small vessel ischemic changes. 2. The degree of ventricular dilatation is normal for age and/or degree of atrophy present. 3. No acute intracranial findings.
--- NOTE | 2021-06-09 21:06 | CR ---
PROCEDURE INFORMATION: Exam: XR Chest Exam date and time: 06/09/2021 8:27 PM Age: 66 years old Clinical indication: Other: Syncope TECHNIQUE: Imaging protocol: XR of the chest. Views: 2 views. COMPARISON: CR Chest 1V Frontal 04/20/2020 7:17 PM FINDINGS: Lungs: Stable granuloma in the right mid the lower lung zone. No acute findings. Pleural spaces: Unremarkable. No pleural effusion. No pneumothorax. Heart/Mediastinum: Unremarkable. No cardiomegaly. Bones/joints: Unremarkable. IMPRESSION: No acute findings.
== END 2021-06-09 23:16 | disposition home or self-care (01) ==
LOC: DL.ED 18:20
DX: T67.1XXA Heat syncope, initial encounter (principal); D72.829 Elevated white blood cell count, unspecified; Z72.0 Tobacco use; E11.9 Type 2 diabetes mellitus without complications; I10 Essential (primary) hypertension; E66.9 Obesity, unspecified; Z68.26 Body mass index [BMI] 26.0-26.9, adult; Z79.82 Long term (current) use of aspirin; Z88.8 Allergy status to other drugs, medicaments and biological substances; Z79.4 Long term (current) use of insulin; Z79.899 Other long term (current) drug therapy
CPT/HCPCS: 36415; 70450; 71046; 80053; 81001; 82550; 82947; 84484; 85025; 93005; J7030; 93010; 99284; 99285-25

== ENCOUNTER 2021-08-16 19:49 | Emergency (ER) | payer MEDICARE ==
[2021-08-16 20:04] VITALS: BP 157/76; PULSE 70
--- NOTE | 2021-08-16 20:28 | CR ---
PROCEDURE INFORMATION: Exam: XR Chest Exam date and time: 08/16/2021 8:15 PM Age: 66 years old Clinical indication: Cough; Additional info: Productive cough 5 days TECHNIQUE: Imaging protocol: XR of the chest. Views: 1 view. COMPARISON: CR Chest 2V 06/09/2021 8:27 PM FINDINGS: Lungs: Stable granuloma right lower lung zone. No segmental or lobar infiltrates. Mild atelectasis left costophrenic angle. Pleural spaces: Unremarkable. Heart/Mediastinum: Unremarkable. No cardiomegaly. Bones/joints: Unremarkable. IMPRESSION: No acute findings.
[2021-08-16 20:43] LABS: CORONAVIRUS COVID-19 NAA NEGATIVE (NEGATIVE)
[2021-08-16 20:57] LABS: ANION GAP 14.2 mEq/L (7-13); CHLORIDE,CL 98 mmol/L (98-107); SODIUM,NA 137 mmol/L (136-145)
[2021-08-16] MEDS ORDERED: Benzonatate 100 MG Cap PO ONE (21:03)
[2021-08-16] MEDS ORDERED: Azithromycin 250 MG Tab PO ONE (21:03)
--- NOTE | 2021-08-16 21:10 | EDM.PDOC ---
ED HPI GENERAL MEDICAL PROBLEM - General Chief Complaint: Respiratory Problem Stated Complaint: AMBULANCE Time Seen by Provider: 08/16/21 20:00 Source of Information: Reports: Patient History Limitations: Reports: No Limitations - History of Present Illness INITIAL COMMENTS - FREE TEXT/NARRATIVE: ED via [facility] with c/o cough x 5 days, felt warm this am, decreased appetite. Taking fluids well. No vomiting or diarrhea. no known exposure. Las been isolating since onset of illness. No chest pain. Cough productive tonight green phlegm. - Related Data Allergies Allergy/AdvReac Type Severity Reaction Status Date / Time hydrochlorothiazide Allergy nightmares Verified 08/16/21 19:51 Home Meds: Home Meds Insulin Glarg,Human.Rec.Analog [Lantus] 40 units SUBCUT BEDTIME 10/14/14 [History] Aspirin [Halfprin] 81 mg PO DAILY 10/22/14 [History] Insulin Aspart [NovoLOG] 8 units SUBCUT TID 10/22/14 [History] Lisinopril 30 mg PO DAILY 10/22/14 [History] Buprenorphine HCl/Naloxone HCl [Suboxone 12 mg-3 mg Sl Film] 1 each SL DAILY 04/26/19 [History] Gabapentin [Neurontin] 600 mg PO TID 06/27/19 [History] Cholecalciferol (Vitamin D3) [Vitamin D3] 08/16/21 [History] DULoxetine [Cymbalta] 08/16/21 [History] Metoprolol Tartrate 25 mg PO DAILY 08/16/21 [History] Multivitamin [Multi-Vitamin Daily] 08/16/21 [History] Rosuvastatin [Crestor] 08/16/21 [History] Past Medical History HEENT History: Reports: None Cardiovascular History: Reports: High Cholesterol, Hypertension Respiratory History: Reports: None Gastrointestinal History: Reports: None Genitourinary History: Reports: BPH, Retention, Urinary Other Genitourinary History: going to often Musculoskeletal History: Reports: Arthritis, Back Pain, Chronic, Osteoarthritis Other Musculoskeletal History: injections to both hips 3 weeks ago Neurological History: Reports: None Psychiatric History: Reports: Addiction Endocrine/Metabolic History: Reports: Diabetes, Type II Hematologic History: Reports: None Immunologic History: Reports: None Oncologic (Cancer) History: Reports: None Dermatologic History: Reports: None - Infectious Disease History Infectious Disease History: Reports: Chicken Pox - Past Surgical History Head Surgeries/Procedures: Reports: None HEENT Surgical History: Reports: Adenoidectomy, Tonsillectomy Other Musculoskeletal Surgeries/Procedures:: ankle surgury Social & Family History - Family History Family Medical History: No Pertinent Family History - Tobacco Use Tobacco Use Status *Q: Former Tobacco User Used Tobacco, but Quit: Yes Month/Year Tobacco Last Used: 07/12 - Caffeine Use Caffeine Use: Reports: Coffee - Recreational Drug Use Recreational Drug Use: No - Living Situation & Occupation Living situation: Reports: with Family Occupation: Employed ED ROS GENERAL - Review of Systems Review Of Systems: Comprehensive ROS is negative, except as noted in HPI. Constitutional: Reports: Malaise, Decreased Appetite HEENT: Reports: No Symptoms Respiratory: Reports: Cough, Sputum Cardiovascular: Reports: No Symptoms GI/Abdominal: Reports: No Symptoms Musculoskeletal: Reports: No Symptoms Skin: Reports: No Symptoms ED EXAM, GENERAL - Physical Exam Exam: See Below Exam Limited By: No Limitations General Appearance: Alert, No Apparent Distress Eye Exam: Bilateral Eye: EOMI, PERRL Ears: Normal External Exam, Hearing Grossly Normal Nose: Normal Inspection Throat/Mouth: Normal Inspection, Normal Voice Head: Atraumatic, Normocephalic Neck: Normal Inspection Respiratory/Chest: Rhonchi (left) Cardiovascular: Normal Peripheral Pulses, Regular Rate, Rhythm GI/Abdominal: Normal Bowel Sounds, Soft Back Exam: Normal Inspection Neurological: Alert, Oriented, Normal Cognition Psychiatric: Normal Affect, Normal Mood Skin Exam: Warm, Dry, Intact, Normal Color Course - Vital Signs Last Recorded V/S: Last Vital Signs Temp 96.8 F L 08/16/21 19:59 Pulse 70 08/16/21 19:59 Resp 20 08/16/21 19:59 BP 157/76 H 08/16/21 19:59 Pulse Ox 96 08/16/21 19:59 - Orders/Labs/Meds Labs: Laboratory Tests 08/16/21 08/16/21 08/16/21 Range/Units 19:54 20:12 20:12 WBC 10.9 H (5.0-10.0) 10^3/uL RBC 4.65 (4.6-6.2) 10^6/uL Hgb 13.7 L D (14.0-18.0) g/dL Hct 39.2 L (40.0-54.0) % MCV 84.3 (80-100) fL MCH 29.5 (27.0-34.0) pg MCHC 34.9 (33.0-35.0) g/dL Plt Count 287 (150-450) 10^3/uL Neut % (Auto) 78.6 H (42.2-75.2) % Lymph % (Auto) 12.3 L (20.5-50.1) % [place] % (Auto) 4.8 (2-8) % Eos % (Auto) 4.0 H (1.0-3.0) % Baso % (Auto) 0.3 (0.0-1.0) % PT (9.0-12.0) SEC INR (0.9-1.2) D-Dimer, Quantitative 296 (0-400) ng/mL Sodium (136-145) mmol/L Potassium (3.5-5.1) mmol/L Chloride (98-107) mmol/L Carbon Dioxide (21-32) mmol/L Anion Gap (7-13) mEq/L BUN (7-18) mg/dL Creatinine (0.70-1.30) mg/dL Est Cr Clr Drug Dosing mL/min Estimated GFR (MDRD) BUN/Creatinine Ratio (No establ ref range) Glucose (70-99) mg/dL Lactic Acid (0.4-2.0) mmol/L Calcium (8.5-10.1) mg/dL Magnesium (1.8-2.4) mg/dL Total Bilirubin (0.2-1.0) mg/dL AST (15-37) U/L ALT (16-63) U/L Alkaline Phosphatase (46-116) U/L C-Reactive Protein (0.0-0.9) mg/dL Total Protein (6.4-8.2) g/dL Albumin (3.4-5.0) g/dL Globulin Albumin/Globulin Ratio Influenza Type A RNA Negative (NEGATIVE) Influenza Type B RNA Negative (NEGATIVE) SARS-CoV-2 RNA (ASUNCION) Negative (NEGATIVE) 08/16/21 08/16/21 08/16/21 Range/Units 20:12 20:12 20:12 WBC (5.0-10.0) 10^3/uL RBC (4.6-6.2) 10^6/uL Hgb (14.0-18.0) g/dL Hct (40.0-54.0) % MCV (80-100) fL MCH (27.0-34.0) pg MCHC (33.0-35.0) g/dL Plt Count (150-450) 10^3/uL Neut % (Auto) (42.2-75.2) % Lymph % (Auto) (20.5-50.1) % [place] % (Auto) (2-8) % Eos % (Auto) (1.0-3.0) % Baso % (Auto) (0.0-1.0) % PT 10.1 (9.0-12.0) SEC INR 1.0 (0.9-1.2) D-Dimer, Quantitative (0-400) ng/mL Sodium 137 (136-145) mmol/L Potassium 4.2 (3.5-5.1) mmol/L Chloride 98 (98-107) mmol/L Carbon Dioxide 29 (21-32) mmol/L Anion Gap 14.2 H (7-13) mEq/L BUN 11 (7-18) mg/dL Creatinine 0.71 (0.70-1.30) mg/dL Est Cr Clr Drug Dosing 89.03 mL/min Estimated GFR (MDRD) > 60 BUN/Creatinine Ratio 15.5 (No establ ref range) Glucose 250 H (70-99) mg/dL Lactic Acid 1.1 (0.4-2.0) mmol/L Calcium 8.6 (8.5-10.1) mg/dL Magnesium 2.2 (1.8-2.4) mg/dL Total Bilirubin 0.6 (0.2-1.0) mg/dL AST 20 (15-37) U/L ALT 23 (16-63) U/L Alkaline Phosphatase 150 H (46-116) U/L C-Reactive Protein 2.2 H (0.0-0.9) mg/dL Total Protein 7.8 (6.4-8.2) g/dL Albumin 3.5 (3.4-5.0) g/dL Globulin 4.3 Albumin/Globulin Ratio 0.8 Influenza Type A RNA (NEGATIVE) Influenza Type B RNA (NEGATIVE) SARS-CoV-2 RNA (ASUNCION) (NEGATIVE) Meds: Medications Discontinued Medications Generic Name Dose Route Start Last Admin Trade Name Smiley PRN Reason Stop Dose Admin Azithromycin 500 mg 08/16/21 21:03 08/16/21 21:10 Azithromycin 250 Mg Tab PO 08/16/21 21:04 500 mg ONETIME ONE Administration Benzonatate 100 mg 08/16/21 21:03 08/16/21 21:10 Benzonatate 100 Mg Cap PO 08/16/21 21:04 100 mg ONETIME ONE Administration Departure - Departure Time of Disposition: 21:07 Disposition: Home, Self-Care 01 Condition: Good Clinical Impression: URI (upper respiratory infection) Qualifiers: URI type: unspecified URI Qualified Code(s): J06.9 - Acute upper respiratory infection, unspecified - Discharge Information *PRESCRIPTION DRUG MONITORING PROGRAM REVIEWED*: No *COPY OF PRESCRIPTION DRUG MONITORING REPORT IN PATIENT ALEJO: No Instructions: Community-Acquired Pneumonia, Adult, Oduw-rs-Rses Forms: ED Department Discharge Additional Instructions: humidifier increase fluids diet as tolerated limit exposure to others azithromycin 250mg every day x 4 days tesselon pearls 200mg one every 8 hours as needed for cough robitussin or muccinex per label instructions to aid in keeping phlegm thin follow up if symptoms worsen Sepsis Event Note (ED) - Evaluation Sepsis Screening Result: No Definite Risk - Focused Exam Vital Signs: Vital Signs Temp Pulse Resp BP Pulse Ox 08/16/21 19:59 96.8 F L 70 20 157/76 H 96
== END 2021-08-16 21:14 | disposition home or self-care (01) ==
LOC: DL.ED 19:49
DX: J06.9 Acute upper respiratory infection, unspecified (principal); M19.90 Unspecified osteoarthritis, unspecified site; E78.00 Pure hypercholesterolemia, unspecified; I10 Essential (primary) hypertension; E11.9 Type 2 diabetes mellitus without complications; Z20.822 Contact with and (suspected) exposure to COVID-19; Z88.8 Allergy status to other drugs, medicaments and biological substances; Z79.4 Long term (current) use of insulin; Z79.82 Long term (current) use of aspirin; Z79.899 Other long term (current) drug therapy
CPT/HCPCS: 0240U; 36415; 71045; 80053; 83605; 83735; 85025; 85379; 85610; 86140; 93005; 99284; A9270

== ENCOUNTER 2022-04-08 11:27 | Emergency (ER) | payer MEDICARE ==
[2022-04-08 12:28] VITALS: BP 134/75; PULSE 91
== END 2022-04-08 12:23 | disposition left against medical advice (07) ==
LOC: DL.ED 11:27
DX: Z53.21 Procedure and treatment not carried out due to patient leaving prior to being seen by health care provider (principal)

== ENCOUNTER 2022-04-18 16:37 | Emergency (ER) | payer MEDICARE ==
[2022-04-18 16:49] VITALS: BP 145/78; PULSE 92
[2022-04-18] MEDS ORDERED: Sodium Chloride 0.9% 10 ML Syringe FLUSH PRN (16:54)
[2022-04-18] MEDS ORDERED: HYDROmorphone 1 MG/ML Syringe IVPUSH ONE (17:32)
[2022-04-18 17:52] LABS: ANION GAP 11.8 mEq/L (7-13)
[2022-04-18] MEDS ORDERED: Piperacillin/Tazobactam 3.375 GM in Sodium Chloride 0.9% 100 ML IV ONE (18:48)
== END 2022-04-18 19:36 ==
LOC: DL.ED 16:37
DX: T81.40XA Infection following a procedure, unspecified, initial encounter (principal); E78.00 Pure hypercholesterolemia, unspecified; I10 Essential (primary) hypertension; E11.9 Type 2 diabetes mellitus without complications; N40.0 Benign prostatic hyperplasia without lower urinary tract symptoms; M19.90 Unspecified osteoarthritis, unspecified site; Z86.73 Personal history of transient ischemic attack (TIA), and cerebral infarction without residual deficits; Z79.899 Other long term (current) drug therapy; Z20.822 Contact with and (suspected) exposure to COVID-19
CPT/HCPCS: 36415; 80053; 83605; 85025; 85651; 86140; 87040; 87070; 87077; 87186; 87205; 96365; 96375; 99284; J1170; J2543; J3490; U0002

== ENCOUNTER 2022-06-23 15:45 | Emergency (ER) | payer MEDICAID, MEDICARE ==
[2022-06-23] MEDS ORDERED: Sodium Chloride 0.9% 10 ML Syringe FLUSH PRN (16:00)
[2022-06-23 16:02] VITALS: BP 93/68; PULSE 73
[2022-06-23] MEDS ORDERED: Acetaminophen 500 MG Tab PO ONE (16:39)
[2022-06-23 16:56] LABS: ANION GAP 13.5 mEq/L (7-13); CHLORIDE,CL 102 mmol/L (98-107); SODIUM,NA 138 mmol/L (136-145)
[2022-06-23 17:06] LABS: ESTIMATED GFR 54 mL/min (>=60)
[2022-06-23] MEDS ORDERED: Bacitracin Oint 1 GM U/D Packet TOP ONE (17:13)
== END 2022-06-23 17:32 | disposition home or self-care (01) ==
LOC: DL.ED 15:45
DX: E86.0 Dehydration (principal); E78.00 Pure hypercholesterolemia, unspecified; I10 Essential (primary) hypertension; E11.9 Type 2 diabetes mellitus without complications; M19.90 Unspecified osteoarthritis, unspecified site; F17.210 Nicotine dependence, cigarettes, uncomplicated; Z88.5 Allergy status to narcotic agent; Z88.8 Allergy status to other drugs, medicaments and biological substances; Z79.4 Long term (current) use of insulin; Z86.73 Personal history of transient ischemic attack (TIA), and cerebral infarction without residual deficits; Z79.899 Other long term (current) drug therapy; Z79.82 Long term (current) use of aspirin
CPT/HCPCS: 36415; 70450; 80053; 80307; 83605; 83735; 84100; 84443; 85025; 86140; 93005; 99285; A9270; J3490

== ENCOUNTER 2023-04-24 17:28 | Inpatient (IN) | payer MEDICARE, OTHER ==
[2023-04-24] MEDS ORDERED: Sodium Chloride 0.9% 10 ML Syringe FLUSH PRN ×2 (17:44→22:34)
[2023-04-24] MEDS ORDERED: Acetaminophen 500 MG Tab PO ONE (17:46)
[2023-04-24] MEDS ORDERED: Ondansetron 4 MG/2 ML SDV IV ONE (17:46)
[2023-04-24] MEDS ORDERED: Sodium Chloride 0.9% 1,000 ML IV ONE ×3 (17:46→20:35)
[2023-04-24] MEDS ORDERED: cefTRIAXone 2 GM Vial IVPUSH ONE (17:47)
[2023-04-24] MEDS ORDERED: Azithromycin 500 MG in Sodium Chloride 0.9% 250 ML IV ONE (17:47)
[2023-04-24 18:23] LABS: BASOPHILS PERCENT AUTO 0.2 % (0.0-1.0); EOSINOPHILS PERCENT AUTO 2.5 % (1.0-3.0); HEMATOCRIT 32.7 % (40.0-54.0); HEMOGLOBIN 11.1 g/dL (14.0-18.0); LYMPHOCYTES PERCENT AUTO 4.6 % (20.5-50.1); MEAN CORPUSCULAR HEMOGLOBIN 29.4 pg (27.0-34.0); MEAN CORPUSCULAR HGB CONC 33.9 g/dL (33.0-35.0); MEAN CORPUSCULAR VOLUME 86.5 fL (80-100); MONOCYTES PERCENT AUTO 4.2 % (2-8); NEUTROPHILS PERCENT AUTO 88.5 % (42.2-75.2); PLATELET COUNT,PLT 293 10^3/uL (150-450); RED BLOOD CELL COUNT 3.78 10^6/uL (4.6-6.2); WHITE BLOOD CELL COUNT,WBC 15.9 10^3/uL (5.0-10.0)
[2023-04-24 18:31] LABS: ALANINE AMINOTRANSFERASE,ALT 12 U/L (16-63); ALBUMIN 3.3 g/dL (3.4-5.0); ALKALINE PHOSPHATASE 100 U/L (46-116); ANION GAP 10.9 mEq/L (7-13); ASPARTATE AMNIOTRANSFERASE,AST 14 U/L (15-37); BILIRUBIN TOTAL 0.6 mg/dL (0.2-1.0); BLOOD UREA NITROGEN,BUN 17 mg/dL (7-18); BUN/CREATININE RATIO 18.1 (No establ ref range); CALCIUM 8.6 mg/dL (8.5-10.1); CARBON DIOXIDE,CO2 26 mmol/L (21-32); CHLORIDE,CL 100 mmol/L (98-107); CREATININE 0.94 mg/dL (0.70-1.30); GLUCOSE RANDOM 154 mg/dL (70-99); POTASSIUM,K 3.9 mmol/L (3.5-5.1); PROTEIN TOTAL,TP 7.2 g/dL (6.4-8.2); SODIUM,NA 133 mmol/L (136-145)
[2023-04-24 18:33] LABS: A/G RATIO 0.85; ESTIMATED GFR 88 mL/min (>=60); ETHANOL BLOOD MEDICAL < 3 mg/dL (0); LACTIC ACID 1.9 mmol/L (0.4-2.0)
[2023-04-24] MEDS ORDERED: Iopamidol 755 Mg/ML 100 ML Bottle IVPUSH ONE (18:39)
[2023-04-24] MEDS ORDERED: Norepinephrine Bit/D5W Premix 250 ML IV SCH (20:30)
[2023-04-24 22:30] LABS: APPEARANCE,URINE CLEAR (CLEAR); BILIRUBIN,URINE NEGATIVE (NEGATIVE); COLOR,URINE YELLOW (YELLOW); GLUCOSE,URINE NEGATIVE (NEGATIVE); KETONES,URINE NEGATIVE (NEGATIVE); LEUKOCYTE ESTERASE,URINE NEGATIVE (NEGATIVE); NITRITE,URINE NEGATIVE (NEGATIVE); OCCULT BLOOD,URINE NEGATIVE (NEGATIVE); PROTEIN,URINE NEGATIVE (NEGATIVE)
[2023-04-24] MEDS ORDERED: Lactated Ringers 1,000 ML IV SCH (22:30)
[2023-04-24] MEDS ORDERED: Ondansetron 4 MG/2 ML SDV IVPUSH PRN (22:34)
[2023-04-24 23:45] LABS: LACTIC ACID 1.3 mmol/L (0.4-2.0)
[2023-04-25] MEDS: Heparin Sodium 5,000 Units/ML Vial SUBCUT SCH ×3 (05:08→21:58)
[2023-04-25 06:39] LABS: BASOPHILS PERCENT AUTO 0.1 % (0.0-1.0); EOSINOPHILS PERCENT AUTO 0.9 % (1.0-3.0); HEMATOCRIT 31.2 % (40.0-54.0); HEMOGLOBIN 10.2 g/dL (14.0-18.0); LYMPHOCYTES PERCENT AUTO 7.7 % (20.5-50.1); MEAN CORPUSCULAR HEMOGLOBIN 28.7 pg (27.0-34.0); MEAN CORPUSCULAR HGB CONC 32.7 g/dL (33.0-35.0); MEAN CORPUSCULAR VOLUME 87.6 fL (80-100); MONOCYTES PERCENT AUTO 5.6 % (2-8); NEUTROPHILS PERCENT AUTO 85.7 % (42.2-75.2); PLATELET COUNT,PLT 283 10^3/uL (150-450); RED BLOOD CELL COUNT 3.56 10^6/uL (4.6-6.2); WHITE BLOOD CELL COUNT,WBC 20.5 10^3/uL (5.0-10.0)
[2023-04-25 07:04] LABS: ALANINE AMINOTRANSFERASE,ALT 16 U/L (16-63); ALBUMIN 2.5 g/dL (3.4-5.0); ALKALINE PHOSPHATASE 77 U/L (46-116); ANION GAP 10.9 mEq/L (7-13); ASPARTATE AMNIOTRANSFERASE,AST 23 U/L (15-37); BILIRUBIN DIRECT 0.1 mg/dL (0.0-0.2); BILIRUBIN INDIRECT 0.6; BILIRUBIN TOTAL 0.7 mg/dL (0.2-1.0); BLOOD UREA NITROGEN,BUN 14 mg/dL (7-18); CALCIUM 7.8 mg/dL (8.5-10.1); CARBON DIOXIDE,CO2 26 mmol/L (21-32); CHLORIDE,CL 105 mmol/L (98-107); CREATININE 0.72 mg/dL (0.70-1.30); EST CRCL DRUG DOSING (CG) 91.81 mL/min; GLUCOSE RANDOM 123 mg/dL (70-99); POTASSIUM,K 3.9 mmol/L (3.5-5.1); PROTEIN TOTAL,TP 6.1 g/dL (6.4-8.2); SODIUM,NA 138 mmol/L (136-145)
[2023-04-25 07:05] LABS: A/G RATIO 0.69; ESTIMATED GFR 100 mL/min (>=60)
[2023-04-25 07:06] LABS: C-REACTIVE PROTEIN 14.7 mg/dL (0.0-0.9)
[2023-04-25] MEDS ORDERED: Sodium Chloride 0.9% 1,000 ML IV ONE (07:33)
[2023-04-25] MEDS: Pantoprazole 40 MG Vial IVPUSH SCH (08:01)
[2023-04-25] MEDS ORDERED: Non-Formulary Medication 1 Each (Gabapentin 800 MG Tablet) PO SCH (09:00)
[2023-04-25] MEDS ORDERED: INSULIN ASPART 100 UNIT/1 ML SUBCUT SCH (09:00)
[2023-04-25] MEDS ORDERED: Albuterol 0.083% 2.5 MG/3 ML Neb Soln NEB PRN (09:20)
[2023-04-25] MEDS ORDERED: Sodium Chloride 0.9% 1,000 ML IV SCH (12:00)
[2023-04-25] MEDS ORDERED: Glucagon,Human Recombinant 1 MG Vial IM PRN (12:06)
[2023-04-25] MEDS ORDERED: 50% Dextrose in Water 50 ML Syringe IVPUSH PRN (12:06)
[2023-04-25] MEDS ORDERED: Insulin Glarg,Human.Rec.Analog 100 Unit/ML SUBCUT SCH (12:30)
[2023-04-25] MEDS: Insulin Lispro 100 Units/ML 3 ML Vial SUBCUT SCH ×2 (12:46→16:57)
[2023-04-25] MEDS: INSULIN ASPART 10 UNIT SUBCUT SCH ×2 (12:55→12:56)
[2023-04-25] MEDS: Insulin Glarg,Human.Rec.Analog 100 Unit/ML SUBCUT SCH (13:06)
[2023-04-25] MEDS ORDERED: Aspirin 325 MG Tab.EC PO ONE (15:45)
[2023-04-25] MEDS: Acetaminophen 325 MG Tab PO PRN (16:02)
[2023-04-25] MEDS ORDERED: Azithromycin 500 MG in Sodium Chloride 0.9% 250 ML IV SCH (21:00)
[2023-04-25] MEDS ORDERED: Non-Formulary Medication 1 Each (Insulin Detemir 100 UNIT/ML Insuln.Pen) SQ SCH (21:00)
[2023-04-25] MEDS: Gabapentin 400 MG Cap PO SCH (21:58)
[2023-04-25] MEDS ORDERED: cefTRIAXone 2 GM Vial IV SCH (22:00)
[2023-04-26] MEDS: Heparin Sodium 5,000 Units/ML Vial SUBCUT SCH ×3 (05:30→21:00)
[2023-04-26] MEDS: Acetaminophen 325 MG Tab PO PRN ×2 (05:34→22:56)
[2023-04-26 06:35] LABS: BASOPHILS PERCENT AUTO 0.2 % (0.0-1.0); EOSINOPHILS PERCENT AUTO 5.2 % (1.0-3.0); HEMATOCRIT 27.9 % (40.0-54.0); HEMOGLOBIN 9.3 g/dL (14.0-18.0); LYMPHOCYTES PERCENT AUTO 12.6 % (20.5-50.1); MEAN CORPUSCULAR HEMOGLOBIN 29.3 pg (27.0-34.0); MEAN CORPUSCULAR HGB CONC 33.3 g/dL (33.0-35.0); MONOCYTES PERCENT AUTO 6.3 % (2-8); NEUTROPHILS PERCENT AUTO 75.7 % (42.2-75.2); PLATELET COUNT,PLT 227 10^3/uL (150-450); RED BLOOD CELL COUNT 3.17 10^6/uL (4.6-6.2); WHITE BLOOD CELL COUNT,WBC 11.6 10^3/uL (5.0-10.0)
[2023-04-26 06:57] LABS: ALBUMIN 2.3 g/dL (3.4-5.0); ANION GAP 15.7 mEq/L (7-13); BILIRUBIN TOTAL 0.3 mg/dL (0.2-1.0); BUN/CREATININE RATIO 18.1 (No establ ref range); CALCIUM 7.8 mg/dL (8.5-10.1); CREATININE 0.72 mg/dL (0.70-1.30); EST CRCL DRUG DOSING (CG) 91.81 mL/min; POTASSIUM,K 3.7 mmol/L (3.5-5.1); PROTEIN TOTAL,TP 5.9 g/dL (6.4-8.2)
[2023-04-26 06:58] LABS: A/G RATIO 0.64
[2023-04-26] MEDS: Insulin Glarg,Human.Rec.Analog 100 Unit/ML SUBCUT SCH (08:16)
[2023-04-26] MEDS: Azithromycin 250 MG Tab PO SCH (08:51)
[2023-04-26] MEDS: Gabapentin 400 MG Cap PO SCH ×3 (08:51→20:54)
[2023-04-26] MEDS: Cefuroxime 250 MG Tab PO SCH ×2 (08:52→20:54)
[2023-04-26] MEDS: Insulin Lispro 100 Units/ML 3 ML Vial SUBCUT SCH ×3 (08:58→16:55)
[2023-04-26] MEDS: Pantoprazole 40 MG Vial IVPUSH SCH (09:03)
[2023-04-26] MEDS: Ferrous Sulfate 325 MG Tab PO SCH (12:02)
[2023-04-26] MEDS: Aspirin 325 MG Tab PO SCH (12:03)
[2023-04-27] MEDS: Heparin Sodium 5,000 Units/ML Vial SUBCUT SCH (05:57)
[2023-04-27 06:10] LABS: BASOPHILS PERCENT AUTO 0.2 % (0.0-1.0); EOSINOPHILS PERCENT AUTO 8.2 % (1.0-3.0); HEMOGLOBIN 9.3 g/dL (14.0-18.0); LYMPHOCYTES PERCENT AUTO 19.3 % (20.5-50.1); MEAN CORPUSCULAR HEMOGLOBIN 28.9 pg (27.0-34.0); MEAN CORPUSCULAR HGB CONC 33.2 g/dL (33.0-35.0); MONOCYTES PERCENT AUTO 7.9 % (2-8); NEUTROPHILS PERCENT AUTO 64.4 % (42.2-75.2); PLATELET COUNT,PLT 235 10^3/uL (150-450); RED BLOOD CELL COUNT 3.22 10^6/uL (4.6-6.2); WHITE BLOOD CELL COUNT,WBC 8.3 10^3/uL (5.0-10.0)
[2023-04-27 06:34] LABS: ALBUMIN 2.4 g/dL (3.4-5.0); ANION GAP 12.4 mEq/L (7-13); BILIRUBIN TOTAL 0.3 mg/dL (0.2-1.0); BUN/CREATININE RATIO 13.9 (No establ ref range); CALCIUM 7.7 mg/dL (8.5-10.1); CREATININE 0.79 mg/dL (0.70-1.30); EST CRCL DRUG DOSING (CG) 83.67 mL/min; MAGNESIUM 2.1 mg/dL (1.8-2.4); POTASSIUM,K 3.4 mmol/L (3.5-5.1); PROTEIN TOTAL,TP 6.1 g/dL (6.4-8.2)
[2023-04-27 06:39] LABS: A/G RATIO 0.65
[2023-04-27 07:27] VITALS: BP 120/71; PULSE 65
[2023-04-27] MEDS: Insulin Lispro 100 Units/ML 3 ML Vial SUBCUT SCH (08:24)
[2023-04-27] MEDS: Cefuroxime 250 MG Tab PO SCH (08:25)
[2023-04-27] MEDS: Aspirin 325 MG Tab PO SCH (08:25)
[2023-04-27] MEDS: Ferrous Sulfate 325 MG Tab PO SCH (08:25)
[2023-04-27] MEDS: Gabapentin 400 MG Cap PO SCH (08:25)
[2023-04-27] MEDS: Insulin Glarg,Human.Rec.Analog 100 Unit/ML SUBCUT SCH (08:25)
[2023-04-27] MEDS: Azithromycin 250 MG Tab PO SCH (08:25)
[2023-04-27] MEDS: Pantoprazole 40 MG Vial IVPUSH SCH (08:26)
== END 2023-04-27 11:50 | disposition home or self-care (01) | DRG 871 ==
LOC: DL.ED 17:28 → DL.MS 22:29 → UNDOADMIN 22:29
PROVIDERS: ADMIT Emergency Medicine; ATTEND Emergency Medicine
DX: A41.9 Sepsis, unspecified organism (principal); R65.20 Severe sepsis without septic shock; J18.9 Pneumonia, unspecified organism; R55 Syncope and collapse; R65.21 Severe sepsis with septic shock; J96.01 Acute respiratory failure with hypoxia; E11.9 Type 2 diabetes mellitus without complications; R91.8 Other nonspecific abnormal finding of lung field; I65.29 Occlusion and stenosis of unspecified carotid artery; N40.1 Benign prostatic hyperplasia with lower urinary tract symptoms; I10 Essential (primary) hypertension; E78.00 Pure hypercholesterolemia, unspecified; Z20.822 Contact with and (suspected) exposure to COVID-19; Z88.6 Allergy status to analgesic agent; M19.90 Unspecified osteoarthritis, unspecified site; G89.29 Other chronic pain; M54.9 Dorsalgia, unspecified; Z86.73 Personal history of transient ischemic attack (TIA), and cerebral infarction without residual deficits; Z98.890 Other specified postprocedural states; Z79.899 Other long term (current) drug therapy; Z79.4 Long term (current) use of insulin; Z79.82 Long term (current) use of aspirin; Z88.8 Allergy status to other drugs, medicaments and biological substances; Z88.5 Allergy status to narcotic agent
CPT/HCPCS: 36415; 71045; 71275; 80048; 80053; 80076; 80307; 81003; 82947; 83605; 83735; 83880; 84145; 84484; 85025; 86140; 87040; 87086; 87804; 93005; 93010; 94010; 94060; 94667; 94668; 96365; 96366; 96368; 96375; 99285; 99285-25; A9270-GY; C9113; J0456; J0696; J1644; J1815-GY; J2405; J3490; J7030; J7050; J7120; J7613-GY; Q9967; U0002

== ENCOUNTER 2024-09-04 15:51 | Emergency (ER) | payer MEDICARE ==
[2024-09-04] MEDS ORDERED: Sodium Chloride 0.9% 10 ML Syringe FLUSH PRN (16:01)
[2024-09-04] MEDS: Iopamidol 755 Mg/ML 100 ML Bottle IVPUSH ONE (16:07)
[2024-09-04 16:10] LABS: BASOPHILS PERCENT AUTO 0.4 % (0.0-1.0); EOSINOPHILS PERCENT AUTO 6.8 % (1.0-3.0); HEMATOCRIT 34.4 % (40.0-54.0); HEMOGLOBIN 11.7 g/dL (14.0-18.0); LYMPHOCYTES PERCENT AUTO 31.8 % (20.5-50.1); MEAN CORPUSCULAR HEMOGLOBIN 29.6 pg (27.0-34.0); MEAN CORPUSCULAR VOLUME 87.1 fL (80-100); MONOCYTES PERCENT AUTO 5.9 % (2-8); NEUTROPHILS PERCENT AUTO 55.1 % (42.2-75.2); PLATELET COUNT,PLT 273 10^3/uL (150-450); RED BLOOD CELL COUNT 3.95 10^6/uL (4.6-6.2); WHITE BLOOD CELL COUNT,WBC 8.1 10^3/uL (5.0-10.0)
[2024-09-04 16:26] LABS: ALANINE AMINOTRANSFERASE,ALT 15 U/L (16-63); ALBUMIN 3.7 g/dL (3.4-5.0); ALKALINE PHOSPHATASE 78 U/L (46-116); ANION GAP 11.8 mEq/L (7-13); ASPARTATE AMNIOTRANSFERASE,AST 15 U/L (15-37); BILIRUBIN TOTAL 0.5 mg/dL (0.2-1.0); BLOOD UREA NITROGEN,BUN 11 mg/dL (7-18); BUN/CREATININE RATIO 13.9 (No establ ref range); CALCIUM 9.1 mg/dL (8.5-10.1); CARBON DIOXIDE,CO2 30 mmol/L (21-32); CHLORIDE,CL 103 mmol/L (98-107); CREATININE 0.79 mg/dL (0.70-1.30); GLUCOSE RANDOM 107 mg/dL (70-99); MAGNESIUM 2.1 mg/dL (1.8-2.4); POTASSIUM,K 3.8 mmol/L (3.5-5.1); PROTEIN TOTAL,TP 7.3 g/dL (6.4-8.2); SODIUM,NA 141 mmol/L (136-145)
[2024-09-04 16:27] LABS: ESTIMATED GFR 96 mL/min (>=60); ETHANOL BLOOD MEDICAL < 3 mg/dL (0)
[2024-09-04 17:36] VITALS: BP 185/79; PULSE 75
== END 2024-09-04 17:55 | disposition home or self-care (01) ==
LOC: DL.ED 15:51
DX: G45.9 Transient cerebral ischemic attack, unspecified (principal); I10 Essential (primary) hypertension; E78.00 Pure hypercholesterolemia, unspecified; E11.9 Type 2 diabetes mellitus without complications; Z79.899 Other long term (current) drug therapy; Z79.4 Long term (current) use of insulin; Z79.82 Long term (current) use of aspirin; Z88.8 Allergy status to other drugs, medicaments and biological substances
CPT/HCPCS: 36415; 70450; 70496; 70498; 80053; 80307; 82947; 83735; 85025; 93005; 99285; Q9967

== ENCOUNTER 2025-01-16 00:43 | Emergency (ER) | payer MEDICARE, OTHER ==
[2025-01-16 00:47] VITALS: BP 102/66; PULSE 70
[2025-01-16] MEDS: Acetaminophen/HYDROcodone 325-5 MG Tab PO ONE (00:54)
[2025-01-16] MEDS: Take Home: Acetaminophen/HYDROcodone 325-5 MG, 5 Tab Pack PO ONE (01:19)
== END 2025-01-16 01:28 | disposition home or self-care (01) ==
LOC: DL.ED 00:43
DX: S52.591K Other fractures of lower end of right radius, subsequent encounter for closed fracture with nonunion (principal); I10 Essential (primary) hypertension; E78.00 Pure hypercholesterolemia, unspecified; E11.9 Type 2 diabetes mellitus without complications; Z86.73 Personal history of transient ischemic attack (TIA), and cerebral infarction without residual deficits; Z88.8 Allergy status to other drugs, medicaments and biological substances; Z79.4 Long term (current) use of insulin; Z79.899 Other long term (current) drug therapy; Z79.82 Long term (current) use of aspirin; Y93.89 Activity, other specified; W01.0XXD Fall on same level from slipping, tripping and stumbling without subsequent striking against object, subsequent encounter
CPT/HCPCS: 29125; 73090; 73110; 99283; A9270